=== PATIENT | female | born 1950 | race Caucasian/White ===

== ENCOUNTER 2024-03-25 17:06 | Emergency (ER) | payer OTHER ==
--- OUTSIDE RECORDS SUMMARY | 2024-03-25 17:10 | XMS REPORT | Clinical Summary ---
Author Name Unknown Organization [facility] Address [address] [place] [address] Care Team Providers Care Tree Marker Name Role Phone Lara Bethea MD Unavailable Gumaro Pan MD Unavailable Unavailable Sj Baeza MD Primary Care Provider [phone] Beth Andrews MD Primary Care Provider + [phone] Sj Baeza MD Primary Care Provider [phone] Allergies No known active allergies Medications * This document contains information received from the source organization and may not represent a complete record from that organization. polyethylene glycol (MIRALAX) 17 g packetIndications :Slow transit constipation Take 17 g by mouth daily. Active senna (SENOKOT) 8.6 mg tabletIndications :Slow transit constipation Take 1 tablet by mouth twice daily. 4 Active levoFLOXacin (LEVAQUIN) 750 mg tabletIndications :Postprocedural fever Take 1 tablet (750 mg) by mouth daily. 6 tablet 4 Active traMADol (Ultram) 50 mg tabletIndications :Metastatic malignant melanoma Take 1 tablet (50 mg) by mouth every 6 (six) hours as needed for moderate pain. 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 Hemoptysis 03/11/2024 Secondary malignant neoplasm of liver and intrahepatic bile duct 03/11/2024 Secondary malignant neoplasm of left lung 2023 Anemia in neoplastic disease 03/11/2024 Pleural effusion 02/29/2024 Weakness 02/29/2024 Other psychological or physi jarrett stress, not elsewhere classified 02/29/2024 Slow transit constipation 02/29/2024 Metastatic malignant melanoma 02/28/2024 Pain due to neoplastic disease 02/28/2024 Pain in right hip 02/28/2024 Mobility poor 02/28/2024 Secondary malignant neoplasm of bone 02/28/2024 Malignant melanoma of scalp and neck 02/28/2024 Neoplasm related pain (acute) (chronic) 02/28/20 Malignant melanoma of scalp 09/24/2022 Encounters * This document contains information received from the source organization and may not represent a complete record from that organization. Date Type Department Care Team Description 03/25/2024 Nurse Triage [facility] PHYSICIAN [address] [place] [id number] Leslye Ramirez, COOKER SODA 03/22/2024 11:14 AM RESIDENT ASSISTANT CNA - 03/22/2024 11:59 PM RESIDENT ASSISTANT CNA Hospital Encounter [facility] [address] [place] [address] [facility] [place] [place] [address] Sj Baeza MD Discharge Disposition: Home 03/21/2024 9:16 AM RESIDENT ASSISTANT CNA - 03/21/2024 11:59 PM RESIDENT ASSISTANT CNA Hospital Encounter [facility] [address] [place] [address] Main dg near [facility] [place] [address] Sj Baeza MD Discharge Disposition: Home 03/20/2024 10:25 AM RESIDENT ASSISTANT CNA - 03/20/2024 11:59 PM RESIDENT ASSISTANT CNA Hospital Encounter [facility] [address] [place] [address] Main dg near [facility] [place] [address] Sj Baeza MD Discharge Disposition: Home 03/20/2024 Travel 03/18/2024 7:00 AM RESIDENT ASSISTANT CNA - 03/18/2024 11:59 PM RESIDENT ASSISTANT CNA Hospital Encounter [facility] [address] [place] [address] Main dg near [place] [phone] Sj Baeza MD Discharge Disposition: Home 03/17/2024 9:50 AM RESIDENT ASSISTANT CNA - 03/17/2024 11:59 PM RESIDENT ASSISTANT CNA Hospital Encounter [facility] [address] Main Bldg [place] [address] Sj Baeza MD Discharge Disposition: Home 03/16/2024 1:30 PM RESIDENT ASSISTANT CNA - 03/16/2024 11:59 PM RESIDENT ASSISTANT CNA Hospital Encounter [facility] [address] Main Bldg, 1st Floor [place] [address] Marisa Lucas MD Discharge Disposition: Home 03/16/2024 12:35 PM RESIDENT ASSISTANT CNA - 03/16/2024 1:29 PM RESIDENT ASSISTANT CNA Hospital Encounter [facility] [address] Main Bldg [place] [address] Sj Baeza MD Discharge Disposition: Home 03/16/2024 Travel 03/15/2024 Documentation [facility] [address] Main Bldg, 1st Floor near [place] [phone] Marisa Lucas MD 03/15/2024 Orders Only [facility] [address] Main Bldg, 9th [place] [address] Raul Monroe APRN Metastatic malignant melanoma (Primary Dx) 03/14/2024 Documentation [facility] [address] Main Bldg, 1st Floor near [place] [phone] Marisa Lucas MD 03/14/2024 Orders Only [facility] - Pulmonology Medicine [address] Main Bldg, 6th [place] [address] Isha Brennan APRN Hemoptysis (Primary Dx) 03/14/2024 Documentation [facility] [address] Main Bldg, 1st [place] [address] Marisa Lucas MD 03/14/2024 Documentation [facility] [address] Main [facility], 1st [place] [address] Marisa Lucas MD 03/13/2024 Orders Only [facility] [address] [place] [address] Main [facility], 1st [place] [address] Marisa Lucas MD Secondary malignant neoplasm of bone (Primary Dx) 03/11/2024 4:26 PM RESIDENT ASSISTANT CNA Anesthesia Event [facility] - Pulmonology Procedures [address] [place] [address], 6th [place] [address] Tavia Durbin MD Thomas, Nina, APRN 03/11/2024 4:00 PM RESIDENT ASSISTANT CNA - 03/11/2024 5:25 PM RESIDENT ASSISTANT CNA Surgery [facility] - Pulmonology Procedures [address] [place] [address], 6th [place] [address] Steven Morales MD DIAGNOSTIC FLEXIBLE OR RIGID BRONCHOSCOPY (AIRWAY EXAM) 03/11/2024 9:23 AM RESIDENT ASSISTANT CNA - 03/15/2024 10:34 AM RESIDENT ASSISTANT CNA Hospital Encounter MAIN [address] [place] [id number] Jeanne Herring MD Ikeguchi, Alexandra P, MD Tawbi, Theo Mckeon MD Slow transit constipation (Primary Dx); Hemoptysis; Malignant melanoma of scalp; Secondary malignant neoplasm of bone; Postprocedural fever; Metastatic malignant melanoma Discharge Disposition: Home 03/11/2024 Prep for Surgery [facility] - Pulmonology Medicine [address] [place] [address], 6th [place] [address] Isha Brennan, COOKER SODA Hemoptysis (Primary Dx) 03/11/2024 Travel 02/28/2024 11:27 AM RESIDENT ASSISTANT CNA - 02/29/2024 1:03 PM RESIDENT ASSISTANT CNA Emergency MAIN [address] [place] [id number] Santiago Montiel MD Gandhi, Ayush, MD Cancer associated pain (Primary Dx); Metastatic malignant melanoma; Pain in right hip; Malignant neoplasm of skin of scalp; Secondary malignant neoplasm of bone; Mobility poor Discharge Disposition: Home 02/28/2024 Travel 01/25/2024 Lab Requisition [facility] Rian Godfrey MD Doan Nahomi Ermelinda 01/14/2024 8:30 PM CDT Ancillary Procedure [facility] [address] [place] [id number] Sj Baeza MD Cancer 01/14/2024 8:25 PM CDT Ancillary Procedure [facility] [address] [place] [id number] [phone] Sj Baeza MD Cancer 01/14/2024 8:20 PM CDT Ancillary Procedure [facility] [address] [place] [id number] [phone] Sj Baeza MD Cancer 01/14/2024 8:15 PM CDT Ancillary Procedure [facility] [address] [place] [id number] [phone] Sj Baeza MD Cancer 01/14/2024 8:10 PM CDT Ancillary Procedure [facility] [address] [place] [id number] [phone] Sj Baeza MD Cancer 01/14/2024 8:05 PM CDT Ancillary Procedure [facility] [address] [place] [id number] Sj Baeza MD Cancer 01/14/2024 8:00 PM CDT Ancillary Procedure [facility] [address] [place] [id number] [phone] Sj Baeza MD Cancer 01/13/2024 8:00 PM CDT Ancillary Procedure [facility] [address] [place] [id number] Sj Baeza MD Cancer after 03/26/2023 Surgical History Surgery Date Site/Laterality Comments [place] BRNCC INCL FLUOR GDNCE DX W/CELL WASHG SPX 03/11/2024 Bronchus/N/A Procedure: DIAGNOSTIC FLEXIBLE OR RIGID BRONCHOSCOPY (AIRWAY EXAM); Surgeon: Steven Morales MD; Location: MAIN [facility]; Service: PULMONARY Social History Tobacco Use Types Packs/Day Years Used Date Smoking Tobacco: Never Smokeless Tobacco: Never Tobacco Cessation:Counseling Given: Not Answered Alcohol Use Standard Drinks/Week Comments Never 0 (1 standard drink = 0.6 oz pur e alcohol) Comments No Sex and Gender Information Value Date Recorded Sex Assigned at Not on file Legal Sex Female 2:40 PM CDT Gender Identity Not on file Sexual Orientation Not on file Travel History Travel Start Travel End [place] 02/10/2024 02/28/2024 Obstetrics History Last Filed Vital Signs Vital Sign Reading Time Taken Comments Blood Pressure 147/69 03/16/2024 1:51 PM RESIDENT ASSISTANT CNA Pulse 95 03/16/2024 1:51 PM RESIDENT ASSISTANT CNA Temperature 37.4 C (99.3 F) 03/16/2024 1:51 PM CS T Respiratory Rate 16 03/16/2024 1:51 PM RESIDENT ASSISTANT CNA Oxygen Saturation 93% 03/16/2024 1:51 PM RESIDENT ASSISTANT CNA Inhaled Oxygen Concentration - - Weight 45.5 kg (100 lb 5 oz) 03/16/2024 1:51 PM RESIDENT ASSISTANT CNA Height 148.5 cm (4' 10.47") 03/11/2024 8:[address] Body Mass Index 20.63 03/11/2024 8:12 PM RESIDENT ASSISTANT CNA Plan of Treatment Upcoming Encounters Date Type Department Care Team (Late st Contact Info) Description 03/28/2024 1:15 PM RESIDENT ASSISTANT CNA Telemedicine [facility] - Medical Oncology [address] [place] [address], 9th [place] [address] Gretel Amaral MD [address] [place] [address] [email or web address] 04/08/2024 6:20 AM RESIDENT ASSISTANT CNA Ancillary Procedure CT Imaging [address] [facility], 7th [place] [address] Steven Morales MD [facility] [place] [address] [email or web address] 04/08/2024 9:30 AM RESIDENT ASSISTANT CNA Follow-Up Cardiopulmonary Center - Pulmonology Medicine [address] [facility] Main Bldg, 6th [place] [address] Adrienne Cat, COOKER SODA [address] [place], [place] [phone] [email or web address] Health Maintenance Due Date Last Done Comments COVID-19 Vaccine (#1) 02/04/1955 Pneumococcal Vaccine: 65+ Years (1 of 1 - PCV) 013 Influenza Vaccine (#1) 2023 Procedures Procedure Name Priority Date/Time Associated Diagnosis Comments PETCT WHOLE BODY F18 FDG (FLUORODEOXYGLUCOSE) WITHOUT CONTRAST STAT 03/15/2024 7:43 AM RESIDENT ASSISTANT CNA .CBC Routine 03/15/2024 4:17 AM RESIDENT ASSISTANT CNA MAGNESIUM LEVEL Routine 03/15/2024 4:17 AM RESIDENT ASSISTANT CNA COMPREHENSIVE METABOLIC PANEL Routine 03/15/2024 4:17 AM RESIDENT ASSISTANT CNA COMPLETE BLOOD COUNT W/ DIFFERENTIAL Routine 03/15/2024 4:17 [address] MELSARC SIMULATION WITHOUT CONTRAST Routine 03/14/2024 11:48 AM RESIDENT ASSISTANT CNA Secondary malignant neoplasm of bone .CBC Routine 03/14/2024 4:00 AM RESIDENT ASSISTANT CNA MAGNESIUM LEVEL Routine 03/14/2024 4:00 AM RESIDENT ASSISTANT CNA COMPREHENSIVE METABOLIC PANEL Routine 03/14/2024 4:00 AM RESIDENT ASSISTANT CNA COMPLETE BLOOD COUNT W/ DIFFERENTIAL Routine 03/14/2024 4:00 AM RESIDENT ASSISTANT CNA .CBC Routine 03/13/2024 3:02 AM RESIDENT ASSISTANT CNA MAGNESIUM LEVEL Routine 03/13/2024 3:02 AM RESIDENT ASSISTANT CNA COMPREHENSIVE METABOLIC PANEL Routine 03/13/2024 3:02 AM RESIDENT ASSISTANT CNA COMPLETE BLOOD COUNT W/ DIFFERENTIAL Routine 03/13/2024 3:02 AM RESIDENT ASSISTANT CNA URINALYSIS WITH MICROSCOPIC STAT 03/12/2024 2:34 PM RESIDENT ASSISTANT CNA URINE CULTURE Routine 03/12/2024 2:33 PM RESIDENT ASSISTANT CNA BLOOD CULTURE STAT 03/12/2024 1:59 PM RESIDENT ASSISTANT CNA .CBC Routine 03/12/2024 6:22 AM RESIDENT ASSISTANT CNA MAGNESIUM LEVEL Routine 03/12/2024 6:22 AM RESIDENT ASSISTANT CNA COMPREHENSIVE METABOLIC PANEL Routine 03/12/2024 6:22 AM RESIDENT ASSISTANT CNA COMPLETE BLOOD COUNT W/ DIFFERENTIAL Routine 03/12/2024 6:22 AM RESIDENT ASSISTANT CNA MRI BRAIN W WO CONTRAST STAT 03/12/20 24 5:22 AM RESIDENT ASSISTANT CNA EKG, 12-LEAD (PORTABLE) STAT 03/12/2024 PATHOLOGY BIOPSY INTERPRETATION Routine 03/11/2024 5:57 PM RESIDENT ASSISTANT CNA Hemoptysis WV BRNCHSC INCL FLUOR GDNCE DX W/CELL WASHG SPX 03/11/2024 4:11 PM RESIDENT ASSISTANT CNA Hemoptysis BLOOD CULTURE Routine 03/11/2024 3:48 PM RESIDENT ASSISTANT CNA URINALYSIS WITH MICROSCOPIC IF INDICATED Routine 03/11/2024 2:56 PM RESIDENT ASSISTANT CNA BASIC METABOLIC PANEL, CALCIUM TOTAL STAT 03/11/2024 2:55 PM [address]IDENT [address] CNA CT CHEST PULMONARY EMBOLISM W CONTRAST STAT 03/11/2024 12:09 PM RESIDENT ASSISTANT CNA HC POC BLOOD UREA NITRO-BUN STAT 03/11/2024 11:20 AM RESIDENT ASSISTANT CNA .CBC Routine 03/11/2024 10:52 AM RESIDENT ASSISTANT CNA C REACTIVE PROTEIN Routine 03/11/2024 10 :52 AM RESIDENT ASSISTANT CNA SEDIMENTATION RATE NON-AUTOMATED Routine 03/11/2024 10:52 AM RESIDENT ASSISTANT CNA TYPE AND SCREEN STAT 03/11/2024 10:52 AM RESIDENT ASSISTANT CNA APTT Routine 03/11/2024 10:52 AM RESIDENT ASSISTANT CNA PROTHROMBIN TIME Routine 03/11/2024 10:5 2 AM RESIDENT ASSISTANT CNA COMPLETE BLOOD COUNT W/ DIFFERENTIAL Routine 03/11/2024 10:52 AM RESIDENT ASSISTANT CNA .CBC Routine 02/29/2024 2:25 AM RESIDENT ASSISTANT CNA COMPLETE BLOOD COUNT W/ DIFFERENTIAL Routine 02/29/2024 2:25 AM RESIDENT ASSISTANT CNA PHOSPHORUS LEVEL Routine 02/29/2024 2:25 AM RESIDENT ASSISTANT CNA MAGNESIUM LEVEL Routine 02/29/2024 2:25 AM RESIDENT ASSISTANT CNA BASIC METABOLIC PANEL, CALCIUM TOTAL Routine 02/29/2024 2:25 AM RESIDENT ASSISTANT CNA XR FEMUR 2 VW RIGHT STAT 02/28/2024 3 :47 [address] CNA CT HEAD WO CONTRAST STAT 02/28/2024 2 :09 PM RESIDENT ASSISTANT CNA CT CHEST ABDOMEN PELVIS W CONTRAST STAT 02/28/2024 2:09 PM RESIDENT ASSISTANT CNA CONFIRM ABORH TYPE STAT 02/28/2024 11 :37 AM RESIDENT ASSISTANT CNA .CBC Routine 02/28/2024 11:36 AM RESIDENT ASSISTANT CNA PHOSPHORUS LEVEL Routine 02/28/2024 11:3 6 AM RESIDENT ASSISTANT CNA MAGNESIUM LEVEL Routine 02/28/2024 11:36 AM RESIDENT ASSISTANT CNA COMPREHENSIVE METABOLIC PANEL Routine 02/28/2024 11:36 AM RESIDENT ASSISTANT CNA TYPE AND SCREEN STAT 02/28/2024 11:36 AM RESIDENT ASSISTANT CNA APTT Routine 02/28/2024 11:36 AM RESIDENT ASSISTANT CNA PROTHROMBIN TIME Routine 02/28/2024 11:3 6 AM RESIDENT ASSISTANT CNA COMPLETE BLOOD COUNT W/ DIFFERENTIAL Routine 02/28/2024 11:36 AM RESIDENT ASSISTANT CNA OSI CT CHEST Routine 01/14/2024 9:09 PM CDT Cancer OSI PET CT WHOLE BODY Routine 01/04/2024 9:09 PM CDT Cancer OSI BONE DENSITY STUDY Routine 9:09 PM RESIDENT ASSISTANT CNA Cancer after 03/26/2023 Results * PETCT Whole Body F18 FDG (Fluorodeoxyglucose) without contrast (03/15/2024 7:43 AM RESIDENT ASSISTANT CNA) Anatomical Region Laterality Modality Whole Body Positron Emissio n Tomography (PET) 03/15/2024 8:35 AM RESIDENT ASSISTANT CNA Impressions 03/15/2024 10:20 AM RESIDENT ASSISTANT CNA 1.Progression of recurrent hypermetabolic melanoma in the left parietal scalp. 2. Progression of multifocal metastatic melanoma to the lungs, liver and bones. ACTIONABLE ITEMS/RECOMMENDATIONS*: None. *An Actionable Finding is a finding that may be unrelated to the original reason for imaging but potentially actionable, meaning further investigation may be necessary. The Actionable Findings Vigilance Unit (AFVU) assists medical providers with responding to additional radiologic findings that are unexpected and potentially actionable. Narrative 03/15/2024 10:20 AM RESIDENT ASSISTANT CNA FULL RESULT: Examination: 18F-FDG-PET/CT without contrast, 03/15/2024 7:43 AM Clinical History: A 74-year-old female with metastatic melanoma initially diagnosed in the scalp and underwent wide local excision in 09/2022 followed by 4 cycles of adjuvant pembrolizumab completed in 03/2023. She was found to have metastatic disease in the lungs and liver in 04/2023 and underwent multiple systemic therapy regimens. She underwent TVEC scalp Dose 1 and DOse 2 on 01/27/24 Indication: Subsequent treatment strategy Comparison: Outside F-18 FDG PET/CT of 01/04/2024. Technique: F-18 fluorodeoxyglucose 11.5 mCi was administered intravenously via right wrist. To allow for distribution and uptake of radiotracer, the patient was asked to rest quietly for approximately 60-90 minutes. PET/CT imaging was performed from the vertex down to the feet. CT scanning was done for attenuation correction, image registration, and diagnosis with scan parameters optimized to minimize radiation exposure to the patient. SUV measurements are reported as maximum SUV based on body weight unless otherwise specified. FINDINGS: Head and Neck: The brain, orbits, paranasal sinuses, oropharynx, salivary glands, larynx and thyroids are unremarkable. No hypermetabolic lymphadenopathy is noted in the cervical stations. Chest: Multiple bilateral hypermetabolic pulmonary nodules have been increased in number and in extent of disease (index lesion of a new 1.6 cm nodule and SUV of 6.0 in the left upper lobe on image 102). There has been development of left-sided pleural effusion.. Hypermetabolic lymphadenopathy is noted in the right paratracheal station (1.6 cm and SUV of 2.8 on image 106 compared with 0.8 cm and SUV of 2.7 on prior image) and left hilum (1.5 cm and SUV of 8.1 on image 117 compared with 0.6 cm and SUV of 2.8 on prior image 117). Abdomen and Pelvis: For reference the parenchymal SUV of the right hepatic lobe is 1.9, compared with 1.9 in prior study. Multiple new hypermetabolic hepatic metastasis are identified with an index lesion in the right hepatic lobe (2.1 cm and SUV of 7.9 on image 155). There has also been increase in extent of hypermetabolic hepatic metastasis as on image 164 (compared with prior image 152). The spleen, pancreas, adrenal glands and kidneys are unremarkable. No hypermetabolic lymphadenopathy is noted in the mesentery, retroperitoneum, iliac nor inguinal stations. Musculoskeletal: There has been enlargement of the soft tissue mass over the left parietal scalp (6.0 x 7.5 and SUV of 8.4 on image 30 compared with 2.5 by by 5.1 cm and SUV of 9.3 on prior image 33). Hypermetabolic osseous metastasis has progressed with index lesions in the right proximal humerus (0.8 cm and SUV of 7.4 on image 96 compared with 0.8 cm and SUV of 3.0 on prior image 97), T10 vertebra on 4 cm and SUV of 9.6 on image 148 compared with 0.5 cm and SUV of 4.7 on image 144). Additional hypermetabolic osseous metastasis are identified in the right femoral neck on image 258 and left acetabulum on image 241 and 236 compared with prior image 232 and 226, respectively). Degenerative changes are noted in the joints of the spine. Procedure Note Seth Kern MD - 03/15/2024 FULL RESULT: Examination: 18F-FDG-PET/CT without contrast, 03/15/2024 7:43 AM Clinical History: A 74-year-old female with metastatic melanoma initiallydiagnosed in the scalp and underwent wide local excision in 09/2022followed by 4 cycles of adjuvant pembrolizumab completed in 03/2023. Shewas found to have metastatic disease in the lungs and liver in 04/2023 andunderwent multiple systemic therapy regimens. She underwent TVEC scalpDose 1 and DOse 2 on 01/27/24 Indication: Subsequent treatment strategy Comparison: Outside F-18 FDG PET/CT of 01/04/2024. Technique: F-18 fluorodeoxyglucose 11.5 mCi was administered intravenously via rightwrist. To allow for distribution and uptake of radiotracer, the patientwas asked to rest quietly for approximately 60-90 minutes. PET/CT imagingwas performed from the vertex down to the feet. CT scanning was done forattenuation correction, image registration, and diagnosis with scanparameters optimized to minimize radiation exposure to the patient. SUVmeasurements are reported as maximum SUV based on body weight unlessotherwise specified. FINDINGS: Head and Neck: The brain, orbits, paranasal sinuses, oropharynx, salivary glands, larynxand thyroids are unremarkable. No hypermetabolic lymphadenopathy is noted in the cervical stations. Chest: Multiple bilateral hypermetabolic pulmonary nodules have been increased innumber and in extent of disease (index lesion of a new 1.6 cm nodule andSUV of 6.0 in the left upper lobe on image 102). There has been development of left-sided pleural effusion.. Hypermetabolic lymphadenopathy is noted in the right paratracheal station(1.6 cm and SUV of 2.8 on image 106 compared with 0.8 cm and SUV of 2.7 onprior image) and left hilum (1.5 cm and SUV of 8.1 on image 117 comparedwith 0.6 cm and SUV of 2.8 on prior image 117). Abdomen and Pelvis: For reference the parenchymal SUV of the right hepatic lobe is 1.9,compared with 1.9 in prior study. Multiple new hypermetabolic hepatic metastasis are identified with anindex lesion in the right hepatic lobe (2.1 cm and SUV of 7.9 on ). There has also been increase in extent of hypermetabolic hepaticmetastasis as on image 164 (compared with prior image 152). The spleen, pancreas, adrenal glands and kidneys are unremarkable. No hypermetabolic lymphadenopathy is noted in the mesentery,retroperitoneum, iliac nor inguinal stations. Musculoskeletal: There has been enlargement of the soft tissue mass over the left parietalscalp (6.0 x 7.5 and SUV of 8.4 on image 30 compared with 2.5 by by 5.1 cmand SUV of 9.3 on prior image 33). Hypermetabolic osseous metastasis has progressed with index lesions in theright proximal humerus (0.8 cm and SUV of 7.4 on image 96 compared with0.8 cm and SUV of 3.0 on prior image 97), T10 vertebra on 4 cm and SUV of9.6 on image 148 compared with 0.5 cm and SUV of 4.7 on image 144). Additional hypermetabolic osseous metastasis are identified in the rightfemoral neck on image 258 and left acetabulum on image 241 and 236compared with prior image 232 and 226, respectively). Degenerative changes are noted in the joints of the spine. IMPRESSION: 1.Progression of recurrent hypermetabolic melanoma in the left parietalscalp. 2. Progression of multifocal metastatic melanoma to the lungs, liver andbones. ACTIONABLE ITEMS/RECOMMENDATIONS*: None. *An Actionable Finding is a finding that may be unrelated to the originalreason for imaging but potentially actionable, meaning furtherinvestigation may be necessary. The Actionable Findings Vigilance Unit(AFVU) assists medical providers with responding to additional radiologicfindings that are unexpected and potentially actionable. us Raul Nelsonbal COOKER SODA IMG PETCT ORDERABLES Final Res ult * (ABNORMAL) .CBC (03/15/2024 4:17 AM [facility]) Only the most recent of7 resultswithin the time period is included. White Blood Cell 6.9 4.1 - 10.5 K/uL 03/15/2024 4:[address] [facility] Red Blood Cell 3.70(L) 3.99 - 5.46 M/uL 03/15/2024 4:[address] [facility] Hemoglobin 9.4(L) 12.2 - 15.3 g/dL 03/15/2024 4:[address] [facility] Hematocrit 28.7(L) 36.4 - 46.8 % 03/15/2024 4:[address] [facility] Mean Cell Volume 78(L) 82 - 99 fL 03/15/2024 4:[address] [facility] Mean Cell Hemoglobin 25.4(L) 26.6 - 33.2 pg 03/15/2024 4:[address] [facility] Mean Cell Hemoglobin Concentration 32.8 31.1 - 35.2 g/dL 03/15/2024 4:[address] [facility] RDW-SD 41.7 37.5 - 49.7 fL 03/15/2024 4:[address] [facility] Red Cell Diameter Width 14.9 11.6 - 15.5 % 03/15/2024 4:[address] [facility] Platelet 207 160 - 397 K/uL 03/15/2024 4:[address] [facility] Mean Platelet Volume 10.6 9.1 - 12.6 fL 03/15/2024 4:[address] [facility] INRBC 0.0 0.0 - 0.1 /100 WBC 03/15/2024 4:[address] [facility] Comment: The INRBC (instrument NRBC) value reflects the enumeration of nucleated red blood cells contained in a 200uL sample of whole blood analyzed by the instrument. This value may differ from the NRBC value reported in a manual differential, which is based on a 100 cell differential. Neutrophil % 68.0 43.2 - 72.7 % 03/15/2024 4:[address] [facility] Lymphocyte % 19.1 16.8 - 46.2 % 03/15/2024 4:[address] [facility] Monocyte % 8.0 5.1 - 12.5 % 03/15/2024 4:[address] [facility] Eosinophil % 3.9 0.4 - 6.3 % 03/15/2024 4:[address] [facility] Basophil % 0.7 0.2 - 1.4 % 03/15/2024 4:[address] [facility] IGRE % 0.3 0.1 - 1.5 % 03/15/2024 4:[address] [facility] Comment:The IGRE% includes M etamyelocytes, Myelocytes and Promyelocytes. Neutrophil Abs 4.65 1.95 - 7.25 K/uL 03/15/2024 4:[address] [facility] Lymphocyte Abs 1.31 1.01 - 3.24 K/uL 03/15/2024 4:[address] [facility] Monocyte Abs 0.55 0.24 - 0.85 K/uL 03/15/2024 4:[address] [facility] Eosinophil Abs 0.27 0.02 - 0.50 K/uL 03/15/2024 4:[address] [facility] Basophil Abs 0.05 0.02 - 0.09 K/uL 03/15/2024 4:[address] [facility] IG Abs 0.02 0.01 - 0.12 K/uL 03/15/2024 4:[address] [facility] Blood Peripheral blood specimen / Unknown Venipuncture / Unknown 03/15/2024 4:17 AM [facility] ASSISTANT CNA 03/15/2024 4:30 AM RESIDENT ASSISTANT CNA us Raul Monroe APRN LAB BLOOD ORDERABLES Final Res ult [facility] Unless otherwise noted, all lab tests performed by: Division of Pathology and Laboratory Medicine [facility] [place] [address] * (ABNORMAL) Comprehensive Metabolic Panel (03/15/2024 4:17 AM RESIDENT ASSISTANT CNA) Only the most recent of5 resultswithin the time period is included. Bilirubin Total 0.5 0.0 - 1.2 mg/dL 03/15/2024 5:[address] [facility] Comment:Indocyanine Green (I CG) may cause falsely elevated bilirubin results. Total and direct bilirubin must not be measured from samples containing indocyanine green. False elevation of total bilirubin can be seen in patients with IgG concentrations above 28 g/L. eGFR 101 >=60 mL/min/1. 73 sq. m 03/15/2024 5:[address] [facility] Comment: The eGFRcr is calculated with the 2020 CKD-EPI creatinine equation using creatinine, patient's age, and sex for adults 18 years of age and older. Other factors, especially muscle mass, may affect accuracy and need to be considered. According to the Kidney Disease: Improving Global Outcomes (KDIGO) CKD Work Group 2012 Clinical Practice Guideline, chronic kidney disease (CKD) is defined as the abnormalities of kidney structure or function, present for more than 3 months, with implications for health. CKD should be classified by cause, GFR category, and albuminuria category. KDIGO guidelines provide the following GFR categories. Stage / Description / GFR mL/min/1.73 m2: G1* / Normal or high / >= 90 G2* / Mildly decreased / 60-89 G3a / Mildly to moderately decreased / 45-59 G3b / Moderately to severely decreased / 30-44 G4 / Severely decreased / 15-29 G5 / Kidney failure / <15 *In the absence of evidence of kidney damage, neither G1 nor G2 fulfill criteria for CKD. Tot Protein 6.7 6.4 - 8.3 gm/dL 03/15/2024 5:[address] [facility] Calcium Level Total 9.0 8.2 - 10.2 mg/dL 03/15/2024 5:[address] [facility] Alkaline Phosphatase 82 35 - 104 U/L 03/15/2024 5:[address] [facility] Albumin Level 3.3(L) 3.5 - 5.2 gm/dL 03/15/2024 5:[address] [facility] AST 35(H) <=32 U/L 03/15/2024 5:[address] [facility] ALT 6 <=33 U/L 03/15/2024 5:[address] [facility] Sodium Level 134(L) 136 - 145 mmol/L 03/15/2024 5:[address] [facility] Potassium Level 3.4 3.4 - 4.5 mmol/L 03/15/2024 5:[address] [facility] Chloride 103 98 - 107 mmol/L 03/15/2024 5:[address] [facility] CO2 19(L) 22 - 29 mmol/L 03/15/2024 5:[address] [facility] Anion Gap 12 4 - 14 mmol/L 03/15/2024 5:[address] [facility] Creatinine 0.43(L) 0.51 - 0.95 mg/dL 03/15/2024 5:[address] [facility] BUN 7 6 - 23 mg/dL 03/15/2024 5:[address] [facility] Glucose Level 106(H) 70 - 99 mg/dL 03/15/2024 5:[address] [facility] Comment: Effective 11/21/15, the glucose reference intervals have been updated based on [place] Diabetes [employer] guidelines (Standards of Medical Care in Diabetes 2016. Diabetes Care 2016; 39: S13-S22). Fasting blood glucose: Normal: 70-99 mg/dL Impaired fasting glucose (increased risk for diabetes or pre-diabetes): 100-125 mg/dL Diabetes mellitus: >/=126 mg/dL Random blood glucose: Normal: 70-199 mg/dL Note: Random glucose >100 mg/dL is associated with increased risk for diabetes. Blood Peripheral blood specimen / Unknown Venipuncture / Unknown 03/15/2024 4:17 AM RESIDENT ASSISTANT CNA 03/15/2024 4:30 AM RESIDENT ASSISTANT CNA us Raul Monroe [facility] LAB BLOOD ORDERABLES Final Res ult Performing Organization Address City/[facility] Co de Phone Number [facility] Unless otherwise noted, all lab tests performed by: Division of Pathology and Laboratory Medicine [address] [place] [id number] * Magnesium Level (03/15/2024 4:17 AM RESIDENT ASSISTANT CNA) Only the most recent of6 resultswithin the time period is included. Magnesium Level 1.8 1.6 - 2.6 mg/dL 03/15/2024 5:05 AM RESIDENT ASSISTANT CNA [facility] Blood Peripheral blood specimen / Unknown Venipuncture / Unknown 03/15/2024 4:17 AM RESIDENT ASSISTANT CNA 03/15/2024 4:30 AM RESIDENT ASSISTANT CNA Raul Monroe [facility]A LAB BLOOD ORDERABLES Final Res ult Performing Organization Address [facility] de Phone Number [facility] Unless otherwise noted, all lab tests performed by: Division of Pathology and Laboratory Medicine [address] [place] [phone] * CT MelSarc Simulation without Contrast - Initial Sim (03/14/2024 11:48 AM RESIDENT ASSISTANT CNA) Narrative Systemgenerated, Documentation - 03/14/2024 12:12 PM RESIDENT ASSISTANT CNA This procedure requires no interpretation from the radiologist. Marisa Lucas MD IMG RO CT SIM ORDERABLES Final R esult * (ABNORMAL) Urinalysis with Microscopic (03/12/2024 2:34 PM RESIDENT ASSISTANT CNA) Urine Appearance Clear Clear 03/12/20 2:57 PM RESIDENT ASSISTANT CNA [facility] Comment:This result was prev iously suppressed from the chart. Urine Color Straw Colorless, Straw, Yellow, Dark Yellow, Straw-Yellow 03/12/2024 2:57 PM RESIDENT ASSISTANT CNA [facility] Comment:This result was prev iously suppressed from the chart. Urine Specific Lares 1.016 1.003 - 1.035 03/12/2024 2:[address] [facility] Comment:This result was prev iously suppressed from the chart. Urine pH 6.5 5.0 - 8.0 03/12/2024 2:[address] [facility] Comment:This result was prev iously suppressed from the chart. Urine Glucose Negative Negative mg/dL 03/12/2024 2:[address] [facility] Comment:This result was prev iously suppressed from the chart. Urine Ketones Negative Negative mg/dL 03/12/2024 2:[address] [facility] Comment:This result was prev iously suppressed from the chart. Urine Blood Negative Negative 03/12/2024 2:[address] [facility] Comment:This result was prev iously suppressed from the chart. Urine Protein Negative Negative mg/dL 03/12/2024 2:[address] [facility] Comment:This result was prev iously suppressed from the chart. Urine Bilirubin Negative Negative 2:[address] [facility] Urine Urobilinogen Negative Negative 03/12/2024 2:[address] [facility] Urine Nitrite Negative Negative 03/12/2024 2:[address] [facility] Comment:This result was prev iously suppressed from the chart. Urine Leukocyte Esterase Negative Negative 03/12/2024 2:[address] [facility] Comment:This result was prev iously suppressed from the chart. Urine WBC 1 <=2 /HPF 03/12/2024 2:[address] [facility] Urine RBC 3(H) <=2 /HPF 03/12/2024 2:[address] [facility] Urine Mucous Trace Not Seen, Trace /HPF 03/12/2024 2:[address] [facility] Comment:This result was prev iously suppressed from the chart. Urine Bacteria Not Seen Not Seen /HPF 03/12/2024 2:[address] [facility] Comment:This result was prev iously suppressed from the chart. Urine Squamous Epithelial Cells OCC Not Seen, OCC, Rare /HPF 03/12/2024 2:[address] [facility] Comment:This result was prev iously suppressed from the chart. Urine (Urine Clean Catch) Non-blood Collection / Unknown 03/12/2024 2:34 PM RESIDENT ASSISTANT CNA 03/12/2024 2:45 PM RESIDENT ASSISTANT CNA Narrative [facility] - 03/12/2024 2:57 PM RESIDENT ASSISTANT CNA Some reporting parameters within the Urinalysis test have changed due to the implementation of new instrumentation in the [facility] [place], allowing greater sensitivity of measurement. Urinalysis results reported by the [facility] using existing instrumentation, as well as Urinalysis testing performed manually or by back-up methodology at the main [place], will remain relatively unchanged. New reporting parameters and units will now be reported for all campuses. us Reina HAQ URINE ORDERABLES Final Result [facility] Unless otherwise noted, all lab tests performed by: Division of Pathology and Laboratory Medicine [address] [place] [address] * Urine Culture (03/12/2024 2:33 PM RESIDENT ASSISTANT CNA) Urine Culture No Growth. 03/14/2024 7:57 AM RESIDENT ASSISTANT CNA [facility] Urine (Urine Clean Catch) Non-blood Collection / Unknown 03/12/2024 2:33 PM RESIDENT ASSISTANT CNA 03/12/2024 2:45 PM RESIDENT ASSISTANT CNA us Reina HAQ MICROBIOLOGY - GENERAL ORDERABL ES Final Result Performing Organization Address City/[facility]/ZIP Co de Phone Number [facility] Unless otherwise noted, all lab tests performed by: Division of Pathology and Laboratory Medicine [address] [place] [address] * Blood Culture (03/12/2024 1:59 PM RESIDENT ASSISTANT CNA) Only the most recent of2 resultswithin the time period is included. Blood Culture No Growth. 03/17/2024 3:00 PM RESIDENT ASSISTANT CNA [facility] Blood (Arm, Right) Venipuncture / Unknown 03/12/2024 1:59 PM RESIDENT ASSISTANT CNA 03/12/2024 2:04 PM RESIDENT ASSISTANT CNA Narrative [facility] - 03/17/2024 3:00 PM RESIDENT ASSISTANT CNA One or both culture bottles underfilled (<5 mL). This will result in decreased sensitivity in pathogen detection. us Reina HAQ MICROBIOLOGY - GENERAL ORDERABL ES Final Result [facility] Unless otherwise noted, all lab tests performed by: Division of Pathology and Laboratory Medicine [address] [place] [phone] * MRI Brain with and without Contrast (03/12/2024 5:22 AM RESIDENT ASSISTANT CNA) Anatomical Region Laterality Modality Head Magnetic Resonan ce 03/12/2024 8:00 AM RESIDENT ASSISTANT CNA Impressions 03/12/2024 8:04 AM RESIDENT ASSISTANT CNA 1. Stable large bilateral posterior occipital and suboccipital scalp intramuscular and dermal masses. 2. No parenchymal or leptomeningeal metastasis. ACTIONABLE ITEMS/RECOMMENDATIONS*: None. *An Actionable Finding is a finding that may be unrelated to the original reason for imaging but potentially actionable, meaning further investigation may be necessary. The Actionable Findings Vigilance Unit (AFVU) assists medical providers with responding to additional radiologic findings that are unexpected and potentially actionable. Narrative 03/12/2024 8:04 AM RESIDENT ASSISTANT CNA FULL RESULT: Examination: MRI BRAIN W WO CONTRAST on 03/12/2024 5:22 AM. CLINICAL HISTORY: Metastatic malignant melanoma INDICATION: Melanoma, metastatic to other region, Metastatic Melanoma, Restaging COMPARISON: Outside brain MRI performed 10/03/2022. Head CT dated 02/28/2024. PET/CT dated 01/04/2024 TECHNIQUE: MRI of the brain without and with IV contrast was performed. FINDINGS: Intracranial: There is no worrisome parenchymal or leptomeningeal enhancement. There is no acute hemorrhage or acute infarct. There is no mass effect or midline shift. The ventricles and extra-axial spaces are appropriate for age. There is no sellar or suprasellar abnormality. Bone: There are no suspicious calvarial or skull base lesions. Extracranial: Again demonstrated are bilateral posterior occipital and suboccipital scalp intramuscular and dermal heterogeneously enhancing and diffusion restricting masses with the largest measuring 4.2 x 8.6 cm (anteroposterior by transverse dimension; series 7, image number 9). The orbits are unremarkable. The mastoid and visualized paranasal sinuses are predominantly clear. Procedure Note Melita Disla MD - 03/12/2024 FULL RESULT: Examination: MRI BRAIN W WO CONTRAST on 03/12/2024 5:22 AM. CLINICAL HISTORY: Metastatic malignant melanoma INDICATION: Melanoma, metastatic to other region, Metastatic Melanoma,Restaging COMPARISON: Outside brain MRI performed 10/03/2022. Head CT dated104/29/2023. PET/CT dated 01/04/2024 TECHNIQUE: MRI of the brain without and with IV contrast was performed. FINDINGS: Intracranial: There is no worrisome parenchymal or leptomeningeal enhancement. There is no acute hemorrhage or acute infarct. There is no mass effect or midline shift. The ventricles and extra-axial spaces are appropriate for age. There is no sellar or suprasellar abnormality. Bone: There are no suspicious calvarial or skull base lesions. Extracranial: Again demonstrated are bilateral posterior occipital and suboccipitalscalp intramuscular and dermal heterogeneously enhancing and diffusionrestricting masses with the largest measuring 4.2 x 8.6 cm(anteroposterior by transverse dimension; series 7, image number 9). The orbits are unremarkable. The mastoid and visualized paranasal sinuses are predominantly clear. IMPRESSION: 1. Stable large bilateral posterior occipital and suboccipital scalpintramuscular and dermal masses. 2. No parenchymal or leptomeningeal metastasis. ACTIONABLE ITEMS/RECOMMENDATIONS*: None. *An Actionable Finding is a finding that may be unrelated to the originalreason for imaging but potentially actionable, meaning furtherinvestigation may be necessary. The Actionable Findings Vigilance Unit(AFVU) assists medical providers with responding to additional radiologicfindings that are unexpected and potentially actionable. us Raul Monroe APRN IMG MRI ORDERABLES Final Resul t * EKG, 12-Lead (Portable) (03/12/2024) Gloria Nunez APRN ECG ORDERABLES Final Result [facility] * Pathology Biopsy Interpretation (03/11/2024 5:57 PM RESIDENT ASSISTANT CNA) Submitted Clinical History Hemoptysis [R04.2] 03/15/2024 4:15 PM RESIDENT ASSISTANT CNA [facility] Diagnosis A: Lung, left lower lobe, endobronchial tumor cryo biopsy: METASTATIC MELANOMA. 03/15/2024 4:15 PM [facility] Comment Tumor is positive fo r S100 and SOX10, by immunohistochemical analysis. 03/15/2024 4:15 PM [facility] Gross Description A: Lung, left lower lobe, lll endobronchial tumor cryo biopsy (x3): A 2.5 x 0.9 x 0.6 cm aggregate of rubio to red-brown tissue, entirely submitted in A1-A2. GM 03/15/2024 4:[address] [facility] Biomarker Block(s) Block for biomarker testing: A1 03/15/2024 4:[address] [facility] Disclaimer "Some tests reported here may have been developed and performance characteristics determined by [facility] Pathology and Laboratory Medicine. These tests have not been specifically cleared or approved by the U.S. Food and Drug Administration. If applicable, controls were reviewed and showed appropriate reactivity." 03/15/2024 4:[address] [facility] Tissue (Lung, Left Lower Lobe) 03/11/2024 5:57 PM RESIDENT ASSISTANT CNA 03/14/2024 8:40 AM RESIDENT ASSISTANT CNA Steven Morales MD LAB PATHOLOGY ORDERABLES Final Result [place] [id number] [place] [address], * Urinalysis w/Microscopic if Indicated (03/11/2024 2:56 PM RESIDENT ASSISTANT CNA) Urine Appearance Clear Clear 03/11/20 3:32 PM RESIDENT ASSISTANT CNA [facility] Urine Color Straw Colorless, Straw, Yellow, Dark Yellow, Straw-Yellow 03/11/2024 3:32 PM RESIDENT ASSISTANT CNA [facility] Urine Specific Lares 1.021 1.003 - 1.035 03/11/2024 3:32 PM RESIDENT ASSISTANT CNA [facility] Urine pH 6.5 5.0 - 8.0 03/11/2024 3:32 PM RESIDENT ASSISTANT CNA [facility] Urine Glucose Negative Negative mg/dL 03/11/2024 3:32 PM RESIDENT ASSISTANT CNA [facility] Urine Ketones Negative Negative mg/dL 03/11/2024 3:32 PM RESIDENT ASSISTANT CNA [facility] Urine Blood Negative Negative 03/11/2024 3:32 PM RESIDENT ASSISTANT CNA [facility] Urine Protein Negative Negative mg/dL 03/11/2024 3:32 PM RESIDENT ASSISTANT CNA [facility] Urine Bilirubin Negative Negative 3:32 PM RESIDENT ASSISTANT CNA [facility] Urine Urobilinogen Negative Negative 03/11/2024 3:32 PM RESIDENT ASSISTANT CNA [facility] Urine Nitrite Negative Negative 03/11/2024 3:32 PM RESIDENT ASSISTANT CNA [facility] Urine Leukocyte Esterase Negative Negative 03/11/2024 3:32 PM RESIDENT ASSISTANT CNA [facility] Urine Voided urine specimen / Unknown Non-blood Collection / Unknown 03/11/2024 2:56 PM RESIDENT ASSISTANT CNA 03/11/2024 3:02 PM RESIDENT ASSISTANT CNA Narrative [facility] - 03/11/2024 3:32 PM RESIDENT ASSISTANT CNA Some reporting parameters within the Urinalysis test have changed due to the implementation of new instrumentation in the [place], allowing greater sensitivity of measurement. Urinalysis results reported by the [facility] using existing instrumentation, as well as Urinalysis testing performed manually or by back-up methodology at the main [place], will remain relatively unchanged. New reporting parameters and units will now be reported for all campuses. No microscopic exam performed; physiochemical findings are negative us Jeanne Herring MD URINE ORDERABLES Final Result [facility] Unless otherwise noted, all lab tests performed by: Division of Pathology and Laboratory Medicine [address] [place] [phone] * (ABNORMAL) Basic Metabolic Panel- Total Calcium (03/11/2024 2:55 PM RESIDENT ASSISTANT CNA) Only the most recent of2 resultswithin the time period is included. eGFR 100 >=60 mL/min/1. 73 sq. m 03/11/2024 3:[address] [facility] Comment: The eGFRcr is calculated with the 2020 CKD-EPI creatinine equation using creatinine, patient's age, and sex for adults 18 years of age and older. Other factors, especially muscle mass, may affect accuracy and need to be considered. According to the Kidney Disease: Improving Global Outcomes (KDIGO) CKD Work Group 2012 Clinical Practice Guideline, chronic kidney disease (CKD) is defined as the abnormalities of kidney structure or function, present for more than 3 months, with implications for health. CKD should be classified by cause, GFR category, and albuminuria category. KDIGO guidelines provide the following GFR categories. Stage / Description / GFR mL/min/1.73 m2: G1* / Normal or high / >= 90 G2* / Mildly decreased / 60-89 G3a / Mildly to moderately decreased / 45-59 G3b / Moderately to severely decreased / 30-44 G4 / Severely decreased / 15-29 G5 / Kidney failure / <15 *In the absence of evidence of kidney damage, neither G1 nor G2 fulfill criteria for CKD. Calcium Level Total 9.3 8.2 - 10.2 mg/dL 03/11/2024 3:[address] [facility] Sodium Level 136 136 - 145 mmol/L 03/11/2024 3:[address] [facility] Potassium Level 3.9 3.4 - 4.5 mmol/L 03/11/2024 3:[address] [facility] Chloride 103 98 - 107 mmol/L 03/11/2024 3:[address] [facility] CO2 21(L) 22 - 29 mmol/L 03/11/2024 3:[address] [facility] Anion Gap 12 4 - 14 mmol/L 03/11/2024 3:[address] [facility] Creatinine 0.45(L) 0.51 - 0.95 mg/dL 03/11/2024 3:[address] [facility] BUN 14 6 - 23 mg/dL 03/11/2024 3:[address] [facility] Glucose Level 102(H) 70 - 99 mg/dL 03/11/2024 3:[address] [facility] Comment: Effective 11/21/15, the glucose reference intervals have been updated based on [place] Diabetes [employer] guidelines (Standards of Medical Care in Diabetes 2016. Diabetes Care 2016; 39: S13-S22). Fasting blood glucose: Normal: 70-99 mg/dL Impaired fasting glucose (increased risk for diabetes or pre-diabetes): 100-125 mg/dL Diabetes mellitus: >/=126 mg/dL Random blood glucose: Normal: 70-199 mg/dL Note: Random glucose >100 mg/dL is associated with increased risk for diabetes. Blood Peripheral blood specimen / Unknown Venipuncture / Unknown 03/11/2024 2:55 PM RESIDENT ASSISTANT CNA 03/11/2024 3:02 PM RESIDENT ASSISTANT CNA us Raulshashi Monroe [facility] LAB BLOOD ORDERABLES Final Res ult [facility] Unless otherwise noted, all lab tests performed by: Division of Pathology and Laboratory Medicine [address] [place] [phone] * CT Chest Pulmonary Embolism with Contrast (03/11/2024 12:09 PM RESIDENT ASSISTANT CNA) Anatomical Region Laterality Modality Chest Computed Tomogra phy 03/11/2024 12:1 4 PM RESIDENT ASSISTANT CNA Impressions 03/11/2024 12:53 PM RESIDENT ASSISTANT CNA 1. No suspected pulmonary embolism allowing for patient related limitations. No right-sided cardiac strain. 2. Numerous pulmonary metastases, some of which appear enlarging. Persistent and new areas of patchy airspace opacity which may reflect perilesional hemorrhage and/or infection. Enlarging left-sided pleural effusion. 3. Associated enlargement of some intrathoracic lymph nodes and possibly of metastases in the liver also appreciated. ACTIONABLE ITEMS/RECOMMENDATIONS*: None. *An Actionable Finding is a finding that may be unrelated to the original reason for imaging but potentially actionable, meaning further investigation may be necessary. The Actionable Findings Vigilance Unit (AFVU) assists medical providers with responding to additional radiologic findings that are unexpected and potentially actionable. Narrative 03/11/2024 12:53 PM RESIDENT ASSISTANT CNA FULL RESULT: Examination: CT CHEST PULMONARY EMBOLISM W CONTRAST on 03/11/2024 12:09 PM. Clinical History: Hemoptysis. Metastatic melanoma Indication: hemoptysis, hemoptysis Comparison: 02/28/2024 Technique: CT of the chest is performed using intravenous contrast. Findings: Cardiovascular: Technically excellent contrast opacification. Minor to moderate respiratory motion degradation in the lower lobes due to dyspnea. The visualized pulmonary arteries appear unremarkable. Some subsegmental lower lobe vasculature are not assessable. Normal cardiac size. No evidence of acute right cardiac strain. Lungs/Airways/Pleura: Numerous bilateral large pulmonary metastases are again noted, several demonstrating increase in size even from recent study, e.g. right upper lobe image 41, 28 mm, previously 26-27 mm, medial right upper lobe image 45, 23 mm, previously 20 mm. As previously left lower lobe metastatic disease infiltrates and expands peripheral airways. There is stable patchy groundglass around right lower lobe metastases which may reflect hemorrhage. There is extensive new patchy groundglass opacity and consolidation in the left lower lobe surrounding metastases as well as minor areas in the left apex. These findings may also reflect hemorrhage, and/or post obstructive pneumonia. Numerous left-sided pleural lesions with enlarging moderately large pleural effusion. Large left basilar pleural mass infiltrates the diaphragmatic pleural surface and abuts the left pericardium. Separate anterior paracardiac pleural recess soft tissue lesions are again identified. No definitive transdiaphragmatic extension. Occasional right-sided fissural and pleural lesions also present without right-sided effusion. Neck/Mediastinum/Nodes: Small right thyroid lobe nodules. No supraclavicular or axillary adenopathy. Enlarged enhancing intrathoracic lymph nodes are increased in size from prior recent study including left hilar 12 mm, previously 10 mm, right hilar 12 mm, previously 8 mm, bilateral paratracheal lymph nodes 11 mm, previously 9-10 mm. Larger perihilar lesions may reflect medial pulmonary metastases. Upper Abdomen: Suspected large right liver lobe metastasis, suspected enlarged from prior study, however, suboptimally evaluated due to phase of contrast. Normal adrenals. Bones/Soft Tissues: PET CT detected osseous metastases (01/04/2024) remain poorly visualized. Procedure Note Orlando Urbina MD - 03/11/2024 FULL RESULT: Examination: CT CHEST PULMONARY EMBOLISM W CONTRAST on 03/11/2024 12:09PM. Clinical History: Hemoptysis. Metastatic melanoma Indication: hemoptysis, hemoptysis Comparison: 02/28/2024 Technique: CT of the chest is performed using intravenous contrast. Findings: Cardiovascular: Technically excellent contrast opacification. Minor to moderaterespiratory motion degradation in the lower lobes due to dyspnea. Thevisualized pulmonary arteries appear unremarkable. Some subsegmental lowerlobe vasculature are not assessable. Normal cardiac size. No evidence ofacute right cardiac strain. Lungs/Airways/Pleura: Numerous bilateral large pulmonary metastases are again noted, severaldemonstrating increase in size even from recent study, e.g. right upperlobe image 41, 28 mm, previously 26-27 mm, medial right upper lobe image45, 23 mm, previously 20 mm. As previously left lower lobe metastaticdisease infiltrates and expands peripheral airways. There is stable patchy groundglass around right lower lobe metastaseswhich may reflect hemorrhage. There is extensive new patchy groundglassopacity and consolidation in the left lower lobe surrounding metastases aswell as minor areas in the left apex. These findings may also reflecthemorrhage, and/or post obstructive pneumonia. Numerous left-sided pleural lesions with enlarging moderately largepleural effusion. Large left basilar pleural mass infiltrates thediaphragmatic pleural surface and abuts the left pericardium. Separateanterior paracardiac pleural recess soft tissue lesions are againidentified. No definitive transdiaphragmatic extension. Occasionalright-sided fissural and pleural lesions also present without right-sidedeffusion. Neck/Mediastinum/Nodes: Small right thyroid lobe nodules. No supraclavicular or axillaryadenopathy. Enlarged enhancing intrathoracic lymph nodes are increased insize from prior recent study including left hilar 12 mm, previously 10 mm,right hilar 12 mm, previously 8 mm, bilateral paratracheal lymph nodes 11mm, previously 9-10 mm. Larger perihilar lesions may reflect medialpulmonary metastases. Upper Abdomen: Suspected large right liver lobe metastasis, suspected enlarged from priorstudy, however, suboptimally evaluated due to phase of contrast. Normaladrenals. Bones/Soft Tissues: PET CT detected osseous metastases (01/04/2024) remain poorlyvisualized. IMPRESSION: 1. No suspected pulmonary embolism allowing for patient relatedlimitations. No right-sided cardiac strain. 2. Numerous pulmonary metastases, some of which appear enlarging.Persistent and new areas of patchy airspace opacity which may reflectperilesional hemorrhage and/or infection. Enlarging left-sided pleuraleffusion. 3. Associated enlargement of some intrathoracic lymph nodes and possiblyof metastases in the liver also appreciated. ACTIONABLE ITEMS/RECOMMENDATIONS*: None. *An Actionable Finding is a finding that may be unrelated to the originalreason for imaging but potentially actionable, meaning furtherinvestigation may be necessary. The Actionable Findings Vigilance Unit(AFVU) assists medical providers with responding to additional radiologicfindings that are unexpected and potentially actionable. us Jeanne Herring MD IM CT ORDERABLES Final Result * (ABNORMAL) POC Chem 8 without Hemoglobin and Hematocrit (03/11/2024 11:20 AM [facility]) POC Sodium 138 138 - 146 mmol/L 03/11/2024 11:[address] [facility] POC Potassium 3.8 3.5 - 4.9 mmol/L 03/11/2024 11:[address] [facility] POC Chloride 105 98 - 109 mmol/L 03/11/2024 11:[address] [facility] POC VTCO2 23(L) 24 - 29 mmol/L 03/11/2024 11:[address] [facility] POC Anion Gap 15 10 - 20 mmol/L 03/11/2024 11:[address] [facility] POC BUN 12 8 - 26 mg/dL 03/11/2024 11:[address] [facility] POC Creatinine 0.5(L) 0.6 - 1.3 mg/dL 03/11/2024 11:[address] [facility] Comment:Medications, especia lly hydroxyurea or supplements, such as ascorbate, can interfere with test results causing a falsely and significantly higher result than expected. If a problem is suspected with a patient's result, a sample should be sent to the laboratory for confirmatory testing. POC I Glu 108(H) 70 - 99 mg/dL 03/11/2024 11:[address] [facility] Comment:Medications, especia lly hydroxyurea or supplements, such as ascorbate, can interfere with test results causing a falsely and significantly higher result than expected. If a problem is suspected with a patient's result, a sample should be sent to the laboratory for confirmatory testing. POC Ionized Calcium 1.24 1.12 - 1.32 mmol/L 03/11/2024 11:[address] [facility] POC Sample Type Venous 11:[address] [facility] POC eGFR 97 >=60 mL/min/1.7 3 sq. m 03/11/2024 11:[address] [facility] Comment: The eGFRcr is calculated with the 2020 CKD-EPI creatinine equation using creatinine, patient's age, and sex for adults 18 years of age and older. Other factors, especially muscle mass, may affect accuracy and need to be considered. According to the Kidney Disease: Improving Global Outcomes (KDIGO) CKD Work Group 2012 Clinical Practice Guideline, chronic kidney disease (CKD) is defined as the abnormalities of kidney structure or function, present for more than 3 months, with implications for health. CKD should be classified by cause, GFR category, and albuminuria category. KDIGO guidelines provide the following GFR categories. Stage / Description / GFR mL/min/1.73 m2: G1* / Normal or high / >= 90 G2* / Mildly decreased / 60-89 G3a / Mildly to moderately decreased / 45-59 G3b / Moderately to severely decreased / 30-44 G4 / Severely decreased / 15-29 G5 / Kidney failure / <15 *In the absence of evidence of kidney damage, neither G1 nor G2 fulfill criteria for CKD. Blood 03/11/2024 11:2 0 AM [facility]IST[facility] CNA 03/11/2024 11:27 AM [facility] Narrative [facility] - 03/11/2024 11:27 AM [facility] Method description: The i-STAT is an analyzer used for in vitro quantification of various analytes in whole blood. The device uses a single disposable cartridge which contains microfabricated sensors, a calibration solution, fluidics system, and a waste chamber. Each test cartridge contains chemically sensitive biosensors on a silicon chip that are configured to perform specific tests. The microfabricated sensors measure analyte concentration by an electrochemical assay. us Jeanne Herring MD POINT OF CARE TEST ORDERABLES Final Result [facility] Unless otherwise noted, all lab tests performed by: Division of Pathology and Laboratory Medicine [address] [place] [address] [place] [id number] * aPTT (03/11/2024 10:52 AM RESIDENT ASSISTANT CNA) Only the most recent of2 resultswithin the time period is included. Pathologist [facility] Activated PTT 32.8 24.8 - 35.6 second(s) 03/11/2024 12:05 PM RESIDENT ASSISTANT CNA [facility] Blood Peripheral blood specimen / Unknown Venipuncture / Unknown 03/11/2024 10:52 AM [facility] ASSIST[facility] CNA 03/11/2024 11:05 AM [facility] Jeanne Herring MD LAB BLOOD ORDERABLES Final Res ult Performing Organization Address City/[facility]/ZIP Co de Phone Number [facility] Unless otherwise noted, all lab tests performed by: Division of Pathology and Laboratory Medicine [address] [place] [id number] * (ABNORMAL) ESR (03/11/2024 10:52 AM [facility]) [facility] Sediment[facility] Rate 99(H) <=30 mm/hr 2023 1:22 PM RESIDENT ASSISTANT CNA [facility] Blood Peripheral blood specimen / Unknown Venipuncture / Unknown 03/11/2024 10:52 AM [facility]NA 03/11/2024 11:05 AM [facility]NA Jeanne Herring MD LAB BLOOD ORDERABLES Final Res ult [facility] Unless otherwise noted, all lab tests performed by: Division of Pathology and Laboratory Medicine [address] [place] [phone] * Prothrombin Time with INR (03/11/2024 10:52 AM RESIDENT ASSISTANT CNA) Only the most recent of2 resultswithin the time period is included. Pathologist [facility] Prothrombin Time 13.6 12.2 - 14.4 second(s) 03/11/2024 12:05 PM RESIDENT ASSISTANT CNA [facility] International Normalization Ratio 1.04 0.91 - 1.10 03/11/2024 12:05 PM RESIDENT ASSISTANT CNA [facility] Blood Peripheral blood specimen / Unknown Venipuncture / Unknown 03/11/2024 10:52 AM [facility] CNA 03/11/2024 11:05 AM [facility] ASS[facility] CNA us Jeanne Herring MD LAB BLOOD ORDERABLES Final Res ult [facility] Unless otherwise noted, all lab tests performed by: Division of Pathology and Laboratory Medicine [address] [place] [id number] * Type and Screen (03/11/2024 10:52 AM RESIDENT ASSISTANT CNA) Only the most recent of2 resultswithin the time period is included. ABORh B POS 03/11/2024 10:25 AM RESIDENT ASSISTANT CNA [facility] ABSC Negative 03/11/2024 10:25 AM RESIDENT ASSISTANT CNA [facility] Clot Expiration 03/14/2024 23:59 03/11/2024 10:25 AM [facility] ASSISTANT CNA [facility] Historical Record Check Complete 03/11/2024 10:25 AM RESIDENT ASSISTANT CNA [facility] Blood Peripheral blood specimen / Unknown Venipuncture / Unknown 03/11/2024 10:52 AM [facility]IDENT ASSISTANT CNA 03/11/2024 11:05 AM [facility]IDENT ASSISTANT CNA us Jeanne Herring MD BLOOD BANK TEST ORDERABLES Fin al Result Performing Organization Address City/[facility]/ZIP Co de Phone Number [facility] [address] [facility] [id number] [place] [address] * CRP (03/11/2024 10:52 AM RESIDENT ASSISTANT CNA) Pathologist [facility] CRP (C Reactive Protein) 14.54 mg/L 03/11/2024 11:36 AM RESIDENT ASSISTANT CNA [facility] Blood Peripheral blood specimen / Unknown Venipuncture / Unknown 03/11/2024 10:52 AM RESIDENT ASSISTANT CNA 03/11/2024 11:05 AM RESIDENT ASSISTANT CNA Narrative [facility] - 03/11/2024 11:36 AM [facility] CNA Adult Reference ranges for HS CRP assay are as follows: Reference ranges when used to assess cardiac risk: <1.00 mg/L Low cardiovascular risk 1.00-3.00 mg/L Average cardiovascular risk >3.00 mg/L High cardiovascular risk Reference ranges when used to assess inflammatory responses: Less than or equal to 10.00 mg/L. us Jeanne Herring MD LAB BLOOD ORDERABLES Final Res ult Performing Organization Address City/[facility]/ZIP Co de Phone Number [facility] Unless otherwise noted, all lab tests performed by: Division of Pathology and Laboratory Medicine [address] [place] [phone] * Phosphorus Level (02/29/2024 2:25 AM RESIDENT ASSISTANT CNA) Only the most recent of2 resultswithin the time period is included. Phosphorus Level 4.2 2.5 - 4.5 mg/dL 02/29/2024 3:25 AM RESIDENT ASSISTANT CNA [facility] Blood Peripheral blood specimen / Unknown Venipuncture / Unknown 02/29/2024 2:25 AM RESIDENT ASSISTANT CNA 02/29/2024 2:40 AM [facility] CNA Juanjo Pope APRN LAB BLOOD ORDERABLES Final Result Performing Organization Address [facility] Co de Phone Number [facility] Unless otherwise noted, all lab tests performed by: Division of Pathology and Laboratory Medicine [address] [place] [id number] * X-ray Femur 2 Views Right (02/28/2024 3:47 PM RESIDENT ASSISTANT CNA) Anatomical Region Laterality Modality Thigh, Extremity Digital Radiogr aphy 02/28/2024 3:49 PM RESIDENT ASSISTANT CNA Impressions 02/28/2024 3:51 PM RESIDENT ASSISTANT CNA No evidence of bony destruction. ACTIONABLE ITEMS/RECOMMENDATIONS*: None. *An Actionable Finding is a finding that may be unrelated to the original reason for imaging but potentially actionable, meaning further investigation may be necessary. The Actionable Findings Vigilance Unit (AFVU) assists medical providers with responding to additional radiologic findings that are unexpected and potentially actionable. Narrative 02/28/2024 3:51 PM RESIDENT ASSISTANT CNA FULL RESULT: Examination: XR FEMUR 2 VW RIGHT, February 28, 2024. Clinical History: Metastatic malignant melanoma Pain in right hip Malignant neoplasm of skin of scalp Indication: Right hip pain, known lesion at right neck of femur on previous PETCT Comparison: Images through the pelvis and femur from PET/CT of January 14, 2024 Technique: Frontal and lateral views of the right femur on four images. Findings: No acute bone or joint abnormality is identified. There is no lytic or sclerotic bony lesion that suggests osseous neoplastic disease. The presumed proximal femoral metastasis that is causing increased activity on PET is occult on conventional radiography. Procedure Note Kim Holliday MD - 02/28/2024 FULL RESULT: Examination: XR FEMUR 2 VW RIGHT, February 28, 2024. Clinical History: Metastatic malignant melanoma Pain in right hip Malignant neoplasm of skin of scalp Indication: Right hip pain, known lesion at right neck of femur onprevious PETCT Comparison: Images through the pelvis and femur from PET/CT of 2023 Technique: Frontal and lateral views of the right femur on four images. Findings: No acute bone or joint abnormality is identified. There is no lytic orsclerotic bony lesion that suggests osseous neoplastic disease. Thepresumed proximal femoral metastasis that is causing increased activity onPET is occult on conventional radiography. IMPRESSION: No evidence of bony destruction. ACTIONABLE ITEMS/RECOMMENDATIONS*: None. *An Actionable Finding is a finding that may be unrelated to the originalreason for imaging but potentially actionable, meaning furtherinvestigation may be necessary. The Actionable Findings Vigilance Unit(AFVU) assists medical providers with responding to additional radiologicfindings that are unexpected and potentially actionable. Santiago Montiel MD IM DIAGNOSTIC IMAGING ORDER EZEQUIEL Final Result * CT Head without Contrast (02/28/2024 2:09 PM RESIDENT ASSISTANT CNA) Anatomical Region Laterality Modality Head Computed Tomogra phy 02/28/2024 3:01 PM RESIDENT ASSISTANT CNA Impressions 02/28/2024 3:22 PM RESIDENT ASSISTANT CNA No acute intracranial abnormality is seen. Progressive posterior craniocervical junction subdermal and intramuscular metastatic nodules. Mild nonspecific periosteal reaction the left occipital bone, possibly reactive. MRI with and without contrast would be more definitive, if clinically warranted. ACTIONABLE ITEMS/RECOMMENDATIONS*: None. *An Actionable Finding is a finding that may be unrelated to the original reason for imaging but potentially actionable, meaning further investigation may be necessary. The Actionable Findings Vigilance Unit (AFVU) assists medical providers with responding to additional radiologic findings that are unexpected and potentially actionable. Narrative 02/28/2024 3:22 PM RESIDENT ASSISTANT CNA FULL RESULT: Examination: CT HEAD WO CONTRAST on 02/28/2024 2:09 PM. CLINICAL HISTORY: Metastatic malignant melanoma Pain in right hip Malignant neoplasm of skin of scalp INDICATION: bleeding occipital scalp tumor, new to [facility], hx mMelanoma, bleeding occipital scalp tumor, new to [facility], hx Melanoma COMPARISON: 10/03/2022 MRI brain, 01/04/[address] outside institution. TECHNIQUE: CT head without IV contrast was performed. FINDINGS: Intracranial: There is no acute hemorrhage or large vascular territory infarct. There is no mass effect or midline shift. The ventricles and extra-axial spaces are appropriate for age. Extracranial: Compared to the December, the left greater than right occipital scalp and posterior superior neck subdermal and mid intramuscular nodules have slightly increased in size. The largest now measuring up to 85 mm in width on series 4 image 44, had previously been approximate 72 mm by my measurements. The orbits are unremarkable. The visualized paranasal sinuses are predominantly clear. The mastoid air cells are clear. Bone: There is mild periosteal reaction the left paracentral upper occipital bone in the region of the dominant left soft tissue nodule best seen in series 4, image 41, not significantly changed since December 2023 PET, but not seen on the 2022 PET/CT . There are otherwise no suspicious lytic or sclerotic calvarial and skull base lesions. Procedure Note Rufino Villagomez Jr., MD - 02/28/2024 FULL RESULT: Examination: CT HEAD WO CONTRAST on 02/28/2024 2:09 PM. CLINICAL HISTORY: Metastatic malignant melanoma Pain in right hip Malignant neoplasm of skin of scalp INDICATION: bleeding occipital scalp tumor, new to [facility], hx mMelanoma,bleeding occipital scalp tumor, new to [facility], hx Melanoma COMPARISON: 10/03/2022 MRI brain, 01/04/[address] [facility] outsideinstitution. TECHNIQUE: CT head without IV contrast was performed. FINDINGS: Intracranial: There is no acute hemorrhage or large vascular territory infarct. There is no mass effect or midline shift. The ventricles and extra-axial spaces are appropriate for age. Extracranial: Compared to the December, the left greater than right occipital scalp andposterior superior neck subdermal and mid intramuscular nodules haveslightly increased in size. The largest now measuring up to 85 mm in widthon series 4 image 44, had previously been approximate 72 mm by mymeasurements. The orbits are unremarkable. The visualized paranasal sinuses are predominantly clear. The mastoid air cells are clear. Bone: There is mild periosteal reaction the left paracentral upper occipitalbone in the region of the dominant left soft tissue nodule best seen inseries 4, image 41, not significantly changed since December 2023 PET,but not seen on the 2022 PET/CT . There are otherwise no suspicious lytic or sclerotic calvarial and skullbase lesions. IMPRESSION: No acute intracranial abnormality is seen. Progressive posterior craniocervical junction subdermal and intramuscularmetastatic nodules. Mild nonspecific periosteal reaction the left occipital bone, possiblyreactive. MRI with and without contrast would be more definitive, ifclinically warranted. ACTIONABLE ITEMS/RECOMMENDATIONS*: None. *An Actionable Finding is a finding that may be unrelated to the originalreason for imaging but potentially actionable, meaning furtherinvestigation may be necessary. The Actionable Findings Vigilance Unit(AFVU) assists medical providers with responding to additional radiologicfindings that are unexpected and potentially actionable. Santiago Montiel MD IMG CT ORDERABLES Final Resu lt * CT Chest Abdomen Pelvis with Contrast (02/28/2024 2:09 PM RESIDENT ASSISTANT CNA) Anatomical Region Laterality Modality Abdomen, Pelvis, Chest Computed Tomography 02/28/2024 2:10 PM RESIDENT ASSISTANT CNA Impressions 02/28/2024 2:31 PM RESIDENT ASSISTANT CNA 1. Study was performed and interpreted on an urgent basis as [facility]. 2. Increase in extent of metastatic disease to lungs with multiple new lesions. 3. Increasing left pleural effusion with now multiple sites of metastatic disease to left pleura. 4. Increasing thoracic adenopathy. 5. Probably increasing metastatic disease to liver when accounting for differences in technique particularly given that the prior PET/CT was obtained without IV contrast. 6. The patient's known multifocal metastatic disease to bone is very poorly seen on CT. Advise follow-up with PET/CT to monitor these sites. 7. The patient has complaints of right hip pain. The prior PET/CT study showed an FDG avid lesion in the neck of the right femur. This region is poorly evaluated on today's CT. It does appear to be asymmetrically more sclerotic than the left hip on today's study. However the appearance is grossly stable when compared to the CT images from the PET/CT of 01/04/2024. Follow-up with PET/CT may be helpful. ACTIONABLE ITEMS/RECOMMENDATIONS*: None. *An Actionable Finding is a finding that may be unrelated to the original reason for imaging but potentially actionable, meaning further investigation may be necessary. The Actionable Findings Vigilance Unit (AFVU) assists medical providers with responding to additional radiologic findings that are unexpected and potentially actionable. Narrative 02/28/2024 2:31 PM RESIDENT ASSISTANT CNA FULL RESULT: Examination: CT CHEST ABDOMEN PELVIS W CONTRAST on 02/28/2024 2:09 PM. Clinical History: Metastatic malignant melanoma Pain in right hip Malignant neoplasm of skin of scalp. A review by reading radiologist of [facility] indicates a prior history of primary occipital scalp melanoma diagnosed in 2020 presenting with complaints of bleeding from scalp tumor sites and ongoing right hip pain for one month had a fall yesterday with increasing pain. Indication: new to [facility], hx melanoma, new to [facility], hx mMelanoma. Comparison: Outside PET/CT 01/04/2024. Technique: CT CHEST ABDOMEN PELVIS W CONTRAST. FINDINGS: CHEST FINDINGS: Lungs and Pleura: multifocal metastatic disease to lungs. Examples include: 1. Left upper lobe, 18 was 10 mm image 27 series 7. 2. Medial right upper lobe 21 mm was 17 image 48. 3. Right middle lobe, 23, was 15 mm image 63. 4. New right lower lobe 10 mm image 90 There also appears to be tumor infiltration along the course of bronchi such as seen to the left lower lobe image 74 series 7 that appears to be new or notably increasing and extends over several centimeters. Interim increase of now moderate left pleural effusion. New multiple left pleural lesions consistent with metastatic disease to pleura for example 22 x 10 mm image 110 series 7. Cardiomediastinum: The heart is of normal size. No pericardial effusion. Increasing now markedly large mass, 8.1 x 3.4 cm along left heart border was 4.9 x 1.8 cm. It is inseparable from the surface of the left heart seen on image 73. It extends inferiorly to the left hemidiaphragm and is confluent with disease over the left hemidiaphragm. Lymph Nodes: Examples include: 1. left hilar 10 mm short axis image 41 series 5. 2. Right paratracheal, 5 was 4 mm image 25 3. Lateral to right hilum, may represent intrapulmonary lesion, 24 x 11 mm. Unable to measurement prior unenhanced PET/CT because of lack of intravenous contrast limits study. ABDOMEN AND PELVIS FINDINGS: Hepatobiliary: Multifocal metastatic disease to liver. Very difficult to assess whether these lesions were present on the prior unenhanced PET/CT. Examples include: 1. Segment 8, 28 was probably 18 mm image 38 series 13. Medial segment 7, 17 was 16 mm image 40. 2. Dome of liver, 35 was possibly 18 mm image 28.. No biliary dilatation. No cholecystitis. Spleen: No splenomegaly. Pancreas: No mass or duct dilatation. Adrenal Glands: Bilateral adrenal gland thickening compatible with hyperplasia. Kidneys, Ureters, Bladder: No hydronephrosis. No suspicious renal lesion. No bladder mass. Gastrointestinal Tract: Multiple diverticuli within the sigmoid colon. Bowel is of normal caliber. No evidence of obstruction or ileus. Stomach is collapsed. Pelvic Organs: Vaginal cuff is unremarkable. Peritoneum/Retroperitoneum: No ascites. Lymph Nodes: No lymphadenopathy. Vessels: Findings of atherosclerotic disease in abdominopelvic vessels. MUSCULOSKELETAL FINDINGS: The patient has a history of multifocal metastatic disease to bone seen on the PET/CT. These lesions are poorly seen on CT and therefore assessment cannot be made for change. Degenerative changes of the spine. Osteopenia. 6 mm anterolisthesis of L5 on the sacrum. Patient with complaints of right hip pain. There is a region of sclerosis seen involving the right femur that is seen on the prior study and appears to correspond with a site of FDG uptake on the PET/CT study. The appearance is grossly similar. This can be followed up with PET/CT. Procedure Note Chi Salazar MD - 02/28/2024 FULL RESULT: Examination: CT CHEST ABDOMEN PELVIS W CONTRAST on 02/28/2024 2:09 PM. Clinical History: Metastatic malignant melanoma Pain in right hip Malignant neoplasm of skin of scalp. A review by reading radiologist Lashawn indicates a prior history of primary occipital scalp melanomadiagnosed in 2020 presenting with complaints of bleeding from scalp tumorsites and ongoing right hip pain for one month had a fall yesterday withincreasing pain. Indication: new to MDA, hx melanoma, new to MDA, hx mMelanoma. Comparison: Outside PET/CT 01/04/2024. Technique: CT CHEST ABDOMEN PELVIS W CONTRAST. FINDINGS: CHEST FINDINGS: Lungs and Pleura: multifocal metastatic disease to lungs. Examplesinclude: 1. Left upper lobe, 18 was 10 mm image 27 series 7. 2. Medial right upper lobe 21 mm was 17 image 48. 3. Right middle lobe, 23, was 15 mm image 63. 4. New right lower lobe 10 mm image 90 There also appears to be tumor infiltration along the course of bronchisuch as seen to the left lower lobe image 74 series 7 that appears to benew or notably increasing and extends over several centimeters. Interim increase of now moderate left pleural effusion. New multiple left pleural lesions consistent with metastatic disease topleura for example 22 x 10 mm image 110 series 7. Cardiomediastinum: The heart is of normal size. No pericardial effusion. Increasing now markedly large mass, 8.1 x 3.4 cm along left heart borderwas 4.9 x 1.8 cm. It is inseparable from the surface of the left heartseen on image 73. It extends inferiorly to the left hemidiaphragm and isconfluent with disease over the left hemidiaphragm. Lymph Nodes: Examples include: 1. left hilar 10 mm short axis image 41 series 5. 2. Right paratracheal, 5 was 4 mm image 25 3. Lateral to right hilum, may represent intrapulmonary lesion, 24 x 11mm. Unable to measurement prior unenhanced PET/CT because of lack ofintravenous contrast limits study. ABDOMEN AND PELVIS FINDINGS: Hepatobiliary: Multifocal metastatic disease to liver. Very difficult toassess whether these lesions were present on the prior unenhanced PET/CT.Examples include: 1. Segment 8, 28 was probably 18 mm image 38 series 13. Medial segment 7,17 was 16 mm image 40. 2. Dome of liver, 35 was possibly 18 mm image 28.. No biliary dilatation. No cholecystitis. Spleen: No splenomegaly. Pancreas: No mass or duct dilatation. Adrenal Glands: Bilateral adrenal gland thickening compatible withhyperplasia. Kidneys, Ureters, Bladder: No hydronephrosis. No suspicious renal lesion.No bladder mass. Gastrointestinal Tract: Multiple diverticuli within the sigmoid colon. Bowel is of normal caliber. No evidence of obstruction or ileus. Stomach is collapsed. Pelvic Organs: Vaginal cuff is unremarkable. Peritoneum/Retroperitoneum: No ascites. Lymph Nodes: No lymphadenopathy. Vessels: Findings of atherosclerotic disease in abdominopelvic vessels. MUSCULOSKELETAL FINDINGS: The patient has a history of multifocal metastatic disease to bone seen onthe PET/CT. These lesions are poorly seen on CT and therefore assessmentcannot be made for change. Degenerative changes of the spine. Osteopenia. 6 mm anterolisthesis of L5on the sacrum. Patient with complaints of right hip pain. There is a region of sclerosisseen involving the right femur that is seen on the prior study and appearsto correspond with a site of FDG uptake on the PET/CT study. Theappearance is grossly similar. This can be followed up with PET/CT. IMPRESSION: 1. Study was performed and interpreted on an urgent basis as [facility]. 2. Increase in extent of metastatic disease to lungs with multiple newlesions. 3. Increasing left pleural effusion with now multiple sites of metastaticdisease to left pleura. 4. Increasing thoracic adenopathy. 5. Probably increasing metastatic disease to liver when accounting fordifferences in technique particularly given that the prior PET/CT wasobtained without IV contrast. 6. The patient's known multifocal metastatic disease to bone is verypoorly seen on CT. Advise follow-up with PET/CT to monitor these sites. 7. The patient has complaints of right hip pain. The prior PET/CT studyshowed an FDG avid lesion in the neck of the right femur. This region ispoorly evaluated on today's CT. It does appear to be asymmetrically moresclerotic than the left hip on today's study. However the appearance isgrossly stable when compared to the CT images from the PET/CT of01/04/2024. Follow-up with PET/CT may be helpful. ACTIONABLE ITEMS/RECOMMENDATIONS*: None. *An Actionable Finding is a finding that may be unrelated to the originalreason for imaging but potentially actionable, meaning furtherinvestigation may be necessary. The Actionable Findings Vigilance Unit(AFVU) assists medical providers with responding to additional radiologicfindings that are unexpected and potentially actionable. Santiago DUNNE CT ORDERABLES Final Resu lt * Confirm ABORh (02/28/2024 11:37 AM RESIDENT ASSISTANT CNA) ABORh Confirm B POS 02/28/2024 11:37 AM RESIDENT ASSISTANT CNA [facility] Blood Peripheral blood specimen / Unknown Venipuncture / Unknown 02/28/2024 11:37 AM RESIDENT ASSISTANT CNA 02/28/2024 11:44 AM RESIDENT ASSISTANT CNA Result [facility] Santiago Montiel MD BLOOD BANK TEST ORDERABLES F inal Result [facility] [id number] [place] [address] * OSI CT Chest (01/14/2024 9:09 PM CDT) Narrative Systemgenerated, Documentation - 01/14/2024 9:10 PM CDT Study acquired at another institution. For comparison only. No [facility] originated interpretation requested or available. Sj DUNNE OUTSIDE IMAGE ORDERABLES Fin al Result * OSI PET CT Whole Body (01/04/2024 9:09 PM CDT) Narrative Systemgenerated, Documentation - 01/14/2024 9:09 PM CDT Study acquired at another institution. For comparison only. No [facility] originated interpretation requested or available. Sj DUNNE OUTSIDE IMAGE ORDERABLES Fin al Result * OSI Bone Density Study (05/26/2023 9:09 PM RESIDENT ASSISTANT CNA) Narrative Systemgenerated, Documentation - 01/14/2024 9:09 PM CDT Study acquired at another institution. For comparison only. No [facility] originated interpretation requested or available. us Sj Felisha DUNNE OUTSIDE IMAGE ORDERABLES Fin al Result after 03/26/2023 Insurance MEDICARE PART A AND B MEDICAID OUT OF STATE TRADITIONAL MEDICARE PART A AND B MEDICAID OUT OF STATE TRADITIONAL Advance Directives Documents on File Type Date Recorded Patient Clinical Psychiatrist Expl anation Advance Directives: Medical Power of Wad Compressor Operator Adjuster 03/17/2024 Medical Power of Att orney * DNR (Latest Code Status on File) Date Activated Date Inactivated Comments 03/11/2024 3:01 PM 03/15/2024 12:34 PM Question Answer Comments DNR obtained from: Patient Patient Provided: Written Authorization (DNR Con sent) * Full Code Date Activated Date Inactivated Comments 03/11/2024 12:06 PM 03/11/2024 3:01 PM * Full Code Date Activated Date Inactivated Comments 02/28/2024 10:02 PM 02/29/2024 3:03 PM Care Teams Tree Marker Relationship Specialty Start Date End Date Lara Bethea MD [address] [place] [address] PCP - External Primary Care Provider General Surgery 01/08/24 Gumaro Pan MD [address] [place] [id number] PCP - External Follow Up A Medical Oncology 01/08/24 Sj Baeza MD [address] [place] [phone] [email or web address] PCP - General Melanoma 01/11/24 02/04/24 Beth Andrews MD [address] [place] [id number] [email or web address] PCP - General Melanoma 02/05/24 02/09/24 Sj Baeza MD [address] [place] [phone] [email or web address] PCP - General Melanoma 02/10/24
[2024-03-25] MEDS ORDERED: ALBUTEROL 2.5 MG/3 ML NEB SOL ONE (18:17)
[2024-03-25] MEDS ORDERED: IPRATROPIUM BROM 0.5MG/2.5ML ONE (18:17)
[2024-03-25 18:18] LABS: Absolute Basophils 0.1 K/uL (0-0.5); Absolute Lymphocytes (CBC) 0.6 K/uL (0.7-4.9); Absolute Monocytes 0.5 K/uL (0.1-1.3); Absolute Neutrophil 6.4 K/uL (1.8-8.0); Basophils % 0.7 % (0-1.3); Eosinophils % 0.3 % (0-4.4); Hematocrit 31.9 % (36.0-45.0); Hemoglobin 10.6 g/dL (12.0-15.0); Lymphocytes % 7.8 % (15.3-44.8); MCH 26.1 pg (27.0-35.0); MCHC 33.2 g/dL (32.0-36.0); MCV 78.8 fL (80-100); MPV 7.3 fL (7.6-11.3); Monocytes % 6.6 % (3.3-12.3); Neutrophils % 84.6 % (41.7-73.7); Platelets 465 thou/uL (152-406); RBC Red Blood Cell Count 4.05 M/uL (3.86-4.86); Red Cell Distribution Width 15.8 % (12.1-15.2)
[2024-03-25 18:37] LABS: Albumin 2.8 g/dL (3.4-5.0); Albumin/Globulin Ratio 0.6 (1.1-1.8); Anion Gap 12.2 mEq/L (5.0-15.0); Bilirubin Direct 0.2 mg/dL (0-0.2); Bilirubin Indirect, Calculated 0.3 mg/dL (0.2-0.8); Bilirubin Total 0.5 mg/dL (0.2-1.0); Potassium 3.2 mEq/L (3.5-5.1); Protein, Total 7.8 g/dL (6.4-8.2); Troponin High Sensitivity 15.7 pg/mL (<58.9)
--- NOTE | 2024-03-25 20:20 | RAD REPORT ---
EXAMINATION: CTA CHEST PE CLINICAL INDICATION: Female, 74 years old. DYSPNEA TECHNIQUE: This examination was performed according to an angiographic protocol with 3D post-processi ng. This involves 3D reconstructions, MIPs, volume rendered images and/or shaded surface rendering. One or more of the following dose reduction techniques were used: Automated exposure control, adjustm ent of the mA and/or kV according to patient size, and/or iterative reconstruction. Unless otherwise specified, incidental findings do not require dedicated imaging follow-up. [id number]. COMPARISON: No prior exam. FINDINGS: LOWER NECK: Visualized thyroid gland and soft tissues are normal. LUNGS AND AIRWAYS: Innumerable bilateral pulmonary nodules consistent with metastatic disease. Atelec tasis as a result of the left pleural effusion. There is nodular airspace disease bilaterally but particularly in the right lower lobe that could reflect superimposed infection or inflammation. PLEURA: Moderate malignant left pleural effusion with enhancing pleural nodules. MEDIASTINUM AND LYMPH NODES: Bilateral hilar as well as mediastinal lymphadenopathy. Large soft tissu e mass along the left heart border. THORACIC AORTA: Normal caliber and configuration. PULMONARY ARTERIES: No evidence of pulmonary embolism. HEART: Malignant pericardial implants. No coronary calcifications. Normal heart size. OSSEOUS STRUCTURES AND CHEST WALL: Intact. UPPER ABDOMEN: No significant abnormalities. IMPRESSION: Negative for pulmonary embolism. Innumerable bilateral pulmonary nodules, malignant small to moderate left pleural effusion, and malignant pericardial implants consistent with given history of known metastatic melanoma. More nodular type airspace disease predominantly in the right lower lobe and natasha ateral upper lobes that could reflect superimposed infection or inflammation..
[2024-03-25 21:48] LABS: Arterial Blood Carboxyhemoglob 0.6 % (0-1.5); Blood O2 Saturation 96.2 % (92-98.5)
[2024-03-25 21:49] LABS: Blood Gas THB 14.5 g/dl (12-18)
--- NOTE | 2024-03-25 22:10 | EDPHYS ---
Physician Documentation [facility] Name: Kia Grigsby Age: 74 yrs Sex: Female : 1950 Arrival Date: 03/25/2024 Time: 17:06 Bed 8 Private MD: MANUEL Physician Jaden Catalan HPI: 03/25 19:04 This 74 yrs old Female presents to ER via Wheelchair with complaints of Breathing rt Difficulty, Weakness. 19:04 Patient with history of melanoma on the scalp receiving radiation [facility] presents rt to the ED with difficulty breathing, cough, start about 2 weeks ago but significantly worsened today. Room air sats are mL 85%, symptoms significantly worsen when the patient lies down. Patient denies other acute complaints at this time, symptoms are moderate in severity, no other aggravating or alleviating factors.. 21:52 Patient apparently is an established patient of [facility] and was initiated on sp4 radiation therapy there. Patient reports that her symptoms of gotten much worse in the last 2 days.. Historical: - Allergies: 18:07 No Known Allergies; ss - PMHx: 18:07 Melanoma; radiation; ss - Immunization history:: Client reports having NOT received the Covid vaccine. - Infectious Disease History:: Denies. - Social history:: Smoking status: Patient denies any tobacco usage or history of. - Family history:: not pertinent. ROS: 19:04 Constitutional: Negative for fever, chills, and weight loss, Cardiovascular: Negative rt for chest pain, palpitations, and edema, Abdomen/GI: Negative for abdominal pain, nausea, vomiting, diarrhea, and constipation, MS/Extremity: Negative for injury and deformity, Skin: Negative for injury, rash, and discoloration, 19:04 Respiratory: Positive for cough, shortness of breath, 21:52 All other systems are negative, sp4 Exam: 19:04 Head/Face: Normocephalic, atraumatic. Chest/axilla: Normal chest wall appearance and rt motion. Nontender with no deformity. No lesions are appreciated. Cardiovascular: Regular rate and rhythm with a normal S1 and S2. No gallops, murmurs, or rubs. Normal PMI, no JVD. No pulse deficits. Respiratory: Lungs have equal breath sounds bilaterally, clear to auscultation and percussion. No rales, rhonchi or wheezes noted. No increased work of breathing, no retractions or nasal flaring. Abdomen/GI: Soft, non-tender, with normal bowel sounds. No distension or tympany. No guarding or rebound. No evidence of tenderness throughout. Skin: Warm, dry with normal turgor. Normal color with no rashes, no lesions, and no evidence of cellulitis. MS/ Extremity: Pulses equal, no cyanosis. Neurovascular intact. Full, normal range of motion. Neuro: Awake and alert, GCS 15, oriented to person, place, time, and situation. Cranial nerves II-XII grossly intact. Motor strength 5/5 in all extremities. Sensory grossly intact. Cerebellar exam normal. Normal gait. 19:04 Constitutional: The patient appears Thin, chronically ill-appearing 19:04 ECG was reviewed by the Attending Physician. 19:04 Respiratory: Coarse breath sounds diffusely, labored respirations, 21:52 Constitutional: Patient is a frail elderly female appears to have mild degree of sp4 cachexia Vital Signs: 17:48 BP 181 / 80; Pulse 104; Resp 48; Temp 99.2(O); Pulse Ox 100% on R/A; Weight 45.36 kg; ss Pain 0/10; 18:36 BP 160 / 77; Pulse 98; Resp 24; Pulse Ox 96% ; bp 19:07 BP 153 / 71; Pulse 101; Resp 23; Pulse Ox 85% on 4 lpm NC; lg3 19:20 BP 154 / 76; Pulse 102; Resp 19 S; Pulse Ox 97% on Non-rebreather mask; lg3 21:00 BP 161 / 66; Pulse 97; Resp 20 S; Pulse Ox 97% on Non-rebreather mask; lg3 17:48 Pain Scale: Adult ss Chasity Coma Score: 21:52 Eye Response: spontaneous(4). Motor Response: obeys commands(6). Verbal Response: sp4 oriented(5). Total: 15. MDM: 17:48 Medical Screening Exam initiated rt 21:14 ED course: EXAMINATION: CTA CHEST PE CLINICAL INDICATION: Female, 74 years old. DYSPNEA sp4 TECHNIQUE: This examination was performed according to an angiographic protocol with 3D postprocessing. This involves 3D reconstructions, MIPs, volume rendered images and/or shaded surface rendering. One or more of the following dose reduction techniques were used: Automated exposure control, adjustment of the mA and/or kV according to patient size, and/or iterative reconstruction. Unless otherwise specified, incidental findings do not require dedicated imaging follow-up. [id number]. COMPARISON: No prior exam. FINDINGS: LOWER NECK: Visualized thyroid gland and soft tissues are normal. LUNGS AND AIRWAYS: Innumerable bilateral pulmonary nodules consistent with metastatic disease. Atelectasis as a result of the left pleural effusion. There is nodular airspace disease bilaterally but particularly in the right lower lobe that could reflect superimposed infection or inflammation. PLEURA: Moderate malignant left pleural effusion with enhancing pleural nodules. MEDIASTINUM AND LYMPH NODES: Bilateral hilar as well as mediastinal lymphadenopathy. Large soft tissue mass along the left heart border. THORACIC AORTA: Normal caliber and configuration. PULMONARYARTERIES: No evidence of pulmonary embolism. HEART: Malignant pericardial implants. No coronary calcifications. Normal heart size. OSSEOUS STRUCTURES AND CHEST WALL: Intact. UPPER ABDOMEN: No significant abnormalities. IMPRESSION: Negative for pulmonary embolism. Innumerable bilateral pulmonary nodules, malignant small to moderate left pleural effusion, and malignant pericardial implants consistent with given history of known metastatic melanoma. More nodular type airspace disease predominantly in the right lower lobe and bilateral upper lobes that could reflect superimposed infection or inflammation.. . 21:53 Antibiotic administration: Rocephin and Zithromax given. sp4 21:55 Data reviewed: vital signs, nurses notes, lab test result(s), cardiac enzymes, CBC, sp4 electrolytes, hepatic panel. 22:06 ED course: Patient was discussed with [facility] ICU and accepted for transfer. BiPAP sp4 settings respiratory rate 14, I to E 10-5 O2 flow 45%. 03/25 17:55 Order name: Basic Metabolic Panel; Complete Time: 18:53 rt 03/25 17:55 Order name: CBC with Diff; Complete Time: 18:31 rt 03/25 17:55 Order name: LFT's; Complete Time: 18:53 rt 03/25 17:55 Order name: Magnesium; Complete Time: 18:53 rt 03/25 17:55 Order name: NT PRO-BNP; Complete Time: 18:53 rt 03/25 17:55 Order name: Troponin HS; Complete Time: 18:53 rt 03/25 20:20 Order name: ABG: VBG; Complete Time: 21:57 kmf 03/25 17:55 Order name: CT Chest For PE Angio; Complete Time: 21:13 rt 03/25 19:46 Order name: BIPAP lg3 03/25 17:55 Order name: EKG; Complete Time: 17:56 rt 03/25 17:55 Order name: Cardiac monitoring; Complete Time: 18:29 rt 03/25 17:55 Order name: EKG - Nurse/Tech; Complete Time: 18:29 rt 03/25 17:55 Order name: IV Saline Lock; Complete Time: 18:29 rt 03/25 17:55 Order name: Labs collected and sent; Complete Time: 18:29 rt 03/25 17:55 Order name: O2 Per Protocol; Complete Time: 18:03 rt 03/25 17:55 Order name: O2 Sat Monitoring; Complete Time: 18:03 rt EC:04 Rate is 96 beats/min. Rhythm is regular, Normal Sinus Rhythm with No ectopy. QRS [place] rt is Normal. ME interval is normal. QRS interval is normal. QT interval is normal. No Q waves. No ST changes noted. Interpreted by me. Administered Medications: 18:20 Drug: DuoNeb Nebulize (3:1) (2.5 mg - 0.5 mg) 3 ml Nebulizer once Route: Nebulizer; bp 23:35 Follow up: Response: No adverse reaction lg3 22:03 Not Given (Physician Discretion): [id number] mg IVPB once over 1 hrs; mix in 250 mL NSsp4 22:04 Not Given (Physician Discretion): Rocephin - rocephin (ceftriaxone)1 grams IVPB once sp4 over 30 mins; (mix in 50 mL NS) 22:39 Drug: Cefepime IVPB 1 grams IVPB at 200 ml/hr once over 30 mins; (mix in NS 100 mL) lg3 Route: IVPB; Rate: 200 ml/hr; Infused Over: 30 mins; Site: right forearm; 23:10 Follow up: Response: No adverse reaction; IV Status: Completed infusion; IV Intake: lg3 100ml 23:10 Drug: vancoMYCIN IVPB 1 grams IVPB once over 2 hrs Route: IVPB; Infused Over: 2 hrs; lg3 Site: right forearm; 23:34 Follow up: Response: No adverse reaction; IV Status: Infusion continued upon transfer lg3 Disposition: 22:10 Critical Care:. 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 Total time: 60 minutes Signatures: Dispatcher [employer] EDAmarilys Pedroza RN RN ss Peltier, Brian RN Abbie Mina RN RN lg3 Juanjo Watkins MD MD rt Jaden Catalan MD MD sp4 Corrections: (The following items were deleted from the chart) 17:56 17:56 BASIC METABOLIC PANEL+C.LAB.BRZ ordered. EDMS EDMS 17:56 17:56 CBC+H.LAB.BRZ ordered. EDMS EDMS 17:56 17:56 HEPATIC FUNCTION+C.LAB.BRZ ordered. EDMS EDMS 17:56 17:56 MAGNESIUM+C.LAB.BRZ ordered. EDMS EDMS 17:56 17:56 PROBNP+C.LAB.BRZ ordered. EDMS EDMS 17:56 17:56 Troponin High Sensitivity+C.LAB.BRZ ordered. EDMS EDMS 23:35 22:10 [facility] ICU Attending sp4 lg3
--- NOTE | 2024-03-25 22:10 | ER ---
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 Pt recently started radiation for Melanoma. 17:48 Coronavirus screen: Client denies travel out of the [place] in the last 14 days. Ebola ss Screen: Patient denies exposure to infectious person. Patient denies travel to an Ebola-affected area in the 21 days before illness onset. Initial Sepsis Screen: Does the patient meet any 2 criteria? RR > 20 per min. HR > 90 bpm. Yes Does the patient have a suspected source of infection? No. Patient's initial sepsis screen is negative. Risk Assessment: Do you want to hurt yourself or someone else? Patient reports no desire to harm self or others. Onset of symptoms was March 23, 2024. 17:48 Method Of Arrival: Wheelchair ss 17:48 Acuity: RAQUEL 2 ss Triage Assessment: 18:10 General: Appears distressed, ill, slender, Behavior is calm, cooperative, appropriate bp for age. Pain: Denies pain. EENT: No deficits noted. Neuro: No deficits noted. Cardiovascular: No deficits noted. Respiratory: Reports shortness of breath labored breathing Onset: The symptoms/episode began/occurred at an unknown time. the patient has mild shortness of breath. GI: Reports nausea. : No signs and/or symptoms were reported regarding the genitourinary system. Derm: No deficits noted. Musculoskeletal: No deficits noted. Historical: - Allergies: 18:07 No Known Allergies; ss - PMHx: 18:07 Melanoma; radiation; ss - Immunization history:: Client reports having NOT received the Covid vaccine. - Infectious Disease History:: Denies. - Social history:: Smoking status: Patient denies any tobacco usage or history of. - Family history:: not pertinent. Screenin:30 [facility] ED Fall Risk Assessment (Adult) History of falling in the last 3 months, bp including since admission No falls in past 3 months (0 pts) Confusion or Disorientation No (0 pts) Intoxicated or Sedated No (0 pts) Impaired Gait No (0 pts) Mobility Assist Device Used No (0 pt) Altered Elimination No (0 pt) Score/Fall Risk Level 0 - 2 = Low Risk Oriented to surroundings. Abuse screen: Denies threats or abuse. Denies injuries from another. Nutritional screening: No deficits noted. Tuberculosis screening: No symptoms or risk factors identified. Assessment: 17:30 Reassessment: Assisted patient into bed to triage, when patient stated she had to use ss the restroom. Assisted patient to restroom VIA wheelchair. 18:35 General: Appears distressed, uncomfortable, Behavior is cooperative, appropriate for bp age, anxious. Cardiovascular: Rhythm is sinus tachycardia. Respiratory: Airway is patent Respiratory effort is even, unlabored, Breath sounds are clear bilaterally. GI: Abdomen is non-distended. 19:07 General: Appears in no apparent distress. uncomfortable, Behavior is calm, cooperative. lg3 Pain: Denies pain. Neuro: No deficits noted. Augustine Agitation-Sedation Scale (RASS): 0 - Alert and Calm Level of Consciousness is awake, alert, obeys commands, Oriented to person, place, time, situation. Cardiovascular: No deficits noted. Denies chest pain, Capillary refill < 3 seconds Clubbing of nail beds is absent JVD is absent Patient's skin is warm and dry. Respiratory: Reports shortness of breath pain with cough Airway is patent Respiratory effort is even, unlabored, Respiratory pattern is regular, Breath sounds are clear bilaterally. GI: No deficits noted. No signs and/or symptoms were reported involving the gastrointestinal system. Abdomen is flat, non-distended. : No signs and/or symptoms were reported regarding the genitourinary system. EENT: No deficits noted. No signs and/or symptoms were reported regarding the EENT system. Derm: No deficits noted. No signs and/or symptoms reported regarding the dermatologic system. Skin is intact, is thin, Skin is dry, Skin is normal, Skin temperature is warm. Musculoskeletal: No deficits noted. Circulation, motion, and sensation intact. Range of motion: intact in all extremities. 20:59 Reassessment: Patient appears in no apparent distress at this time. Patient and/or lg3 family updated on plan of care and expected duration. Pain level reassessed. Patient is alert, oriented x 3, equal unlabored respirations, skin warm/dry/pink. 22:50 General: attempted to call report. nurse not avaliable. lg3 Vital Signs: 17:48 BP 181 / 80; Pulse 104; Resp 48; Temp 99.2(O); Pulse Ox 100% on R/A; Weight 45.36 kg; ss Pain 0/10; 18:36 BP 160 / 77; Pulse 98; Resp 24; Pulse Ox 96% ; bp 19:07 BP 153 / 71; Pulse 101; Resp 23; Pulse Ox 85% on 4 lpm NC; lg3 19:20 BP 154 / 76; Pulse 102; Resp 19 S; Pulse Ox 97% on Non-rebreather mask; lg3 21:00 BP 161 / 66; Pulse 97; Resp 20 S; Pulse Ox 97% on Non-rebreather mask; lg3 17:48 Pain Scale: Adult ss Chasity Coma Score: 21:52 Eye Response: spontaneous(4). Motor Response: obeys commands(6). Verbal Response: sp4 oriented(5). Total: 15. ED Course: 17:10 Patient arrived in ED. gm2 17:21 Juanjo Watkins MD is Attending Physician. rt 17:24 Giuseppe Méndez, RN is Primary Nurse. bp 18:01 Radiology exam delayed due to lab results not completed at this time. IV insertion sj attempt and/or patient not having appropriate IV at this time. 18:07 Triage completed. ss 18:07 Arm band placed on right wrist. ss 18:15 Initial lab(s) drawn, by hi, sent to lab. EKG done, by ED staff, reviewed by Juanjo Watkins MD. Inserted saline lock: 22 gauge in right forearm, using aseptic technique. Blood collected. Flushed with 10 mL NS. 18:30 Patient has correct armband on for positive identification. bp 19:08 Oxygen administration via non-rebreather mask \T\ 15L/min. lg3 19:40 Primary Nurse role handed off by Giuseppe Méndez, RN jl7 19:[address] via stretcher. lg3 20:05 CT Chest For PE Angio In Process Unspecified. EDMS 20:05 Attending Physician role handed off by Juanjo Watkins MD sp4 20:05 Jaden Catalan MD is Attending Physician. sp4 20:59 Abbie Carmen RN is Primary Nurse. lg3 21:21 initiated transfer with Erick at [facility]. kmf 23:35 No provider procedures requiring assistance completed. Patient transferred, IV remains lg3 in place. 03/26 03:07 pt was accepted to [facility]. Accepting Dr. Marjan Correa \T\ 2240. Pt will go to [facility] [id number]. Number for nurse to nurse report [phone]. [facility] to transfer pt. Administered Medications: 03/25 18:20 Drug: DuoNeb Nebulize (3:1) (2.5 mg - 0.5 mg) 3 ml Nebulizer once Route: Nebulizer; bp 23:35 Follow up: Response: No adverse reaction lg3 22:03 Not Given (Physician Discretion): [id number] mg IVPB once over 1 hrs; mix in 250 mL NSsp4 22:04 Not Given (Physician Discretion): Rocephin - rocephin (ceftriaxone)1 grams IVPB once sp4 over 30 mins; (mix in 50 mL NS) 22:39 Drug: Cefepime IVPB 1 grams IVPB at 200 ml/hr once over 30 mins; (mix in NS 100 mL) lg3 Route: IVPB; Rate: 200 ml/hr; Infused Over: 30 mins; Site: right forearm; 23:10 Follow up: Response: No adverse reaction; IV Status: Completed infusion; IV Intake: lg3 100ml 23:10 Drug: vancoMYCIN IVPB 1 grams IVPB once over 2 hrs Route: IVPB; Infused Over: 2 hrs; lg3 Site: right forearm; 23:34 Follow up: Response: No adverse reaction; IV Status: Infusion continued upon transfer lg3 Medication: 23:35 VIS not applicable for this client. lg3 Intake: 23:10 IV: 100ml; Total: 100ml. lg3 Outcome: 22:10 ER care complete, transfer ordered by . sp4 23:35 Transferred by ground EMS to [facility], Transfer form completed. lg3 23:35 Condition: stable 23:35 Instructed on the need for transfer, Demonstrated understanding of instructions, 23:35 Patient left the ED. lg3 Signatures: Dispatcher [employer] EDMarisela Lugo Shelby, LAVONNE RN ss Candie Trotter RN RN jl7 Giuseppe Méndez RN RN bp Able, Lacie, RN RN lg3 Juanjo Watkins MD MD rt Jaden Catalan MD MD sp4 Rena Espinosa [facility] No Garcia [facility] Corrections: (The following items were deleted from the chart) 19:45 19:20 Resp 19bpm; Spontaneous; Pulse Ox 97% Non-rebreather mask; lg3 lg3
[2024-03-25] MEDS ORDERED: VANCOMYCIN 1 GM/VIAL ONE (22:33)
[2024-03-25] MEDS ORDERED: CEFEPIME 1 GM/VIAL ONE (22:34)
[2024-03-25] MEDS ORDERED: NA CHLORIDE 0.9% 200 ML ONE (22:34)
[2024-03-26 04:34] VITALS: TEMP 99.2
[2024-03-26 04:38] VITALS: O2SAT 97
[2024-03-26 04:39] VITALS: BP 161/66
--- NOTE | 2024-03-27 14:15 | EKG ---
Test Date: 2024-03-25 Test Time: 18:24:53 Plant Maintenance Supervisor: BP MEASUREMENT RESULTS: Intervals: Rate: 96 MA: 128 QRSD: 88 QT: 362 QTc: 457 [place]: P: 54 MA: 128 QRS: 87 T: 74 INTERPRETIVE STATEMENTS: Normal sinus rhythm Possible Lateral infarct, age undetermined Abnormal ECG No previous ECG available for comparison Electronically Signed On 03-27-24 14:12:18 MANAGER EMPLOYMENT by Patrice Elder
== END 2024-03-25 23:35 ==
LOC: ER 17:06
DX: J96.91 Respiratory failure, unspecified with hypoxia (principal); I31.31 Malignant pericardial effusion in diseases classified elsewhere; C78.01 Secondary malignant neoplasm of right lung; J90 Pleural effusion, not elsewhere classified; E87.1 Hypo-osmolality and hyponatremia; C43.4 Malignant melanoma of scalp and neck
CPT/HCPCS: 96365; 96367; 93005; 85025; 80048; 36415; 83735; 80076; 84484; 83880; 71275; 82805; 99285; 94660; Q9967; J7613; J7644; J0692